=== PATIENT | male | born 1965 | race Caucasian/White ===

== ENCOUNTER 2020-06-18 14:48 | Inpatient (IN) | payer MEDICARE, MEDICAID, OTHER ==
[2020-06-18 15:43] LABS: Hemoglobin 9.5 g/dL (14.0-18.0); Mean Corpuscular HGB CONC 31.9 g/dL (32.0-36.0); Mean Corpuscular Hemoglobin 31.2 pg (27.0-31.0); Mean Corpuscular Volume 97.8 fL (78.0-98.0); Mean Platelet Volume 11.2 fL (7.4-10.4); Platelet Count 55 thou/uL (130-400); RBC Distribution Width 14.3 % (11.5-14.5); Red Blood Cell (RBC) Count 3.02 mill/uL (4.70-6.10); White Blood Cell (WBC) Count 5.5 thou/uL (4.8-10.8)
[2020-06-18 16:04] LABS: Band 49 % (5-11); Eosinophils 1 % (0-10); Lymphocytes 1 % (21-51); MDiff Complete? YES; Metamyelocyte 3 % (0-0); Monocytes 3 % (0-10); Neutrophil 43 % (42-75); Platelet Morphology Comment Appears Decreased; Polychromasia SLIGHT = 2-3 cells (100X) (0-2/hpf); Reflex for Review?? YES
[2020-06-18 16:13] LABS: ALT (SGPT) 28 U/L (8-55); AST (SGOT) 52 U/L (5-34); Alkaline Phosphatase 162 U/L (40-110); Anion Gap 13 mmol/L (10-20); BUN (Urea Nitrogen) 30 mg/dL (8.4-25.7); Bilirubin, Total 2.7 mg/dL (0.2-1.2); Calc. Creatinine Clearance 0 mL/min (70-130); Calcium 8.3 mg/dL (7.8-10.44); Carbon Dioxide 21 mmol/L (22-29); Chloride 105 mmol/L (98-107); Estimated GFR-MDRD 58; Globulin 3.5 g/dL (2.4-3.5); Glucose 144 mg/dL (70-105); Protein, Total 5.5 g/dL (6.0-8.3); Sodium 135 mmol/L (136-145)
[2020-06-18] MEDS ORDERED: Morphine 4 MG/ML VIAL ONE (16:13)
[2020-06-18] MEDS ORDERED: Ondansetron PF 4 MG/2 ML Vial ONE (16:14)
[2020-06-18] MEDS ORDERED: Piperacillin/Tazobactam 4.5 GM VIAL ONE (16:14)
[2020-06-18] MEDS ORDERED: Vancomycin 1 GM/200 ML BAG ONE (16:14)
--- NOTE | 2020-06-18 16:35 | RAD ---
Exam: Chest one view HISTORY:Hip replacement years ago. Comparison: 04/11/2017 FINDINGS: Cardiac silhouette: Normal Aorta: Unremarkable Pulmonary vessels: Normal Costophrenic angles: Clear LUNGS: No masses or consolidation. Pneumothorax: None Osseous abnormalities: None IMPRESSION: No acute cardiopulmonary process.
--- NOTE | 2020-06-18 16:40 | RAD ---
Exam:2 views right hip HISTORY: Previous hip replacement removal. Pain. COMPARISON: 03/08/2017 FINDINGS: Extensive soft tissue swelling and subcutaneous emphysema. Possibility of cellulitis is díaz sed. There are destructive changes involving the acetabulum and residual right hip. There is dislocation with foreshortening. The possibility of underlying osteomyelitis cannot be excluded. Sept ic joint is also a consideration. IMPRESSION: Presumed infection in the right hip.
[2020-06-18 18:45] LABS: Lactic Acid 3.2 mmol/L (0.5-2.2)
[2020-06-18] MEDS ORDERED: Acetaminophen 325 MG TAB PO PRN (19:02)
[2020-06-18] MEDS ORDERED: Zolpidem Tartrate 5 MG TAB PO PRN (19:02)
[2020-06-18] MEDS ORDERED: Senokot S 8.6-50 MG TAB PO PRN (19:02)
[2020-06-18] MEDS ORDERED: Ondansetron ODT 4 MG TAB PO PRN (19:02)
[2020-06-18] MEDS ORDERED: Diabetic Tussin 200 MG/10 ML UDCUP PO PRN (19:02)
[2020-06-18] MEDS ORDERED: Loperamide HCl 2 MG CAP PO PRN (19:02)
[2020-06-18] MEDS ORDERED: Sodium Chloride 0.65% Nasal 44 ML BOT EA NARE PRN (19:02)
[2020-06-18] MEDS ORDERED: Calcium Carbonate 500 MG ChewTAB PO PRN (19:02)
[2020-06-18] MEDS ORDERED: Bisacodyl 10 MG SUPP PR PRN (19:02)
[2020-06-18] MEDS ORDERED: Cepastat Lozenges 1 LOZ PO PRN (19:02)
[2020-06-18] MEDS ORDERED: Loratadine 10 MG TAB PO PRN (19:02)
[2020-06-18] MEDS ORDERED: Ondansetron PF 4 MG/2 ML Vial IVP PRN (19:02)
--- NOTE | 2020-06-18 19:13 | HP ---
PRIMARY CARE PHYSICIAN: dr. Jero Stroud. REASON FOR ADMISSION: Sepsis, septic arthritis. HISTORY OF PRESENT ILLNESS: A 55-year-old male who came to emergency room with increasing right hip pain and swelling. 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 He was also on chronic suppressive therapy with antibiotic therapy. Per patient, he was having increasing amount of pain in his right hip for about a week and he called Orthopedic physician's office. Today, his pain got worse and he was feeling weak and that is why he decided to come to emergency room. In the emergency room, patient was hypotensive and tachycardic. He was given IV fluids. The patient has underlying history of cirrhosis of liver due to alcohol as well as history of paroxysmal atrial fibrillation. PAST MEDICAL HISTORY: History of septic arthritis of right hip due to MRSA, alcohol-induced cirrhosis of liver with portal hypertension, chronic thrombocytopenia, gastroesophageal reflux disease, paroxysmal atrial fibrillation. PAST SURGICAL HISTORY: EGD; history of several surgeries on his right hip, including history of right total hip arthroplasty and subsequent removal of hardware. CURRENT HOME MEDICATIONS: The patient does not have any medication with him at this point, but based on most recent discharge from the hospital, the patient is on following medications; 1. Aldactone 100 mg daily. 2. Colace 100 mg twice daily. 3. Corgard 40 mg daily. 4. Ferrous sulfate 325 mg daily. 5. Folic acid 1 mg daily. 6. Lactulose 20 g daily p.r.n. 7. Lasix 40 mg daily. 8. MiraLAX 17 g p.o. bedtime. 9. Protonix 40 mg daily. 10. Thiamine 100 mg daily. 11. Tramadol p.r.n. 12. Vitamin B12 at 1000 mcg p.o. daily. REVIEW OF SYSTEMS: All review of systems reviewed and negative except as mentioned in HPI. PAST PSYCHIATRIC HISTORY: Bipolar disorder and depression. SOCIAL HISTORY: The patient lives at home. Currently, no history of tobacco, alcohol, or illicit drug abuse. He has remote history of alcoholism. EMERGENCY ROOM COURSE: The patient has received IV fluids, vancomycin, Zosyn, Zofran, and morphine. Family history: No strong family history of premature coronary artery disease stroke or cancer PHYSICAL EXAMINATION: VITAL SIGNS: Blood pressure 98/54, pulse 138, respiratory rate 24, temperature 98, saturation 100% on room air. Weight 92.2 kg. GENERAL: The patient is currently alert, awake, chronically ill, no obvious acute distress. HEENT: Head; normocephalic, atraumatic. NECK: Supple. No JVD. LUNGS: Clear to auscultation without any rhonchi or rales. CARDIAC: S1 and S2 appears regular, but tachycardia. No murmur elicited. No gallop. No rub. ABDOMEN: Obesity noted, ascites noted. EXTREMITIES: Bilateral lower extremity pitting edema noted, right hip erythema and draining pus. NEUROLOGIC: Nonfocal examination. No asterixis. HEMATOLOGICAL SYSTEM: No lymphadenopathy. SIGNIFICANT LABORATORY DATA: WBC 5.5, hemoglobin 9.5, MCV 97.8, platelets 55 with bandemia. BMP; sodium 135, potassium 4.0, chloride 105, carbon dioxide 21, anion gap 13, BUN 30, creatinine 1.29, glucose 144, calcium 8.3, lactic acid 3.6. LFTs; bilirubin 2.7, AST 52, ALT 28, alkaline phosphatase 162, albumin 2.0. Culture from the hip sent. EKG is showing tachycardia. Hip x-ray showing infection in the right hip. ASSESSMENT/PLAN: 1. Sepsis with acute organ dysfunction, likely due to methicillin-resistant Staphylococcus aureus. 2. Sepsis-associated hypotension. 3. Tachycardia, likely due to sepsis. 4. Bandemia due to sepsis. 5. Lactic acidosis due to sepsis. 6. Chronic thrombocytopenia. 7. Macrocytic anemia. 8. Hyperbilirubinemia and coagulopathy due to cirrhosis of liver. 9. Abnormal liver function tests due to cirrhosis of liver. 10. Cirrhosis of liver with portal hypertension. 11. Paroxysmal atrial fibrillation. PLAN: The patient will be admitted to telemetry floor. We will closely monitor for any deterioration. In that case, patient will need upgradation to IMCU or ICU transfer. Dr. Swan will be consulted; orthopedic doctor, Dr. Kirkpatrick, already consulted and I spoke with him and the patient is planned for surgery tomorrow. We will check PT/INR tomorrow. If coagulopathy, then we will correct before surgery. We will repeat labs tomorrow. Follow up on culture results, expecting MRSA bacteremia. Patient's prognosis is extremely poor. He is also very high risk for surgery. We will get opinion from Cardiology as well. We have started vancomycin and Zosyn for now. Pharmacy to adjust vancomycin dose. The patient will need wound care. The patient will need long-term antibiotic therapy. Because of low platelet count, we will avoid any heparin products. We will continue with folic acid, vitamin B12 therapy. We will hold on any blood pressure medication because of low blood pressure. CODE STATUS: The patient wants to be a full code. The patient does not have any surrogate decisionmaker. GI prophylaxis, Protonix 40 mg p.o. daily. DISPOSITION PLAN: Based on clinical course. PROGNOSIS: Extremely poor. Job ID: [id number] MTDD
[2020-06-18] MEDS ORDERED: Norepinephrine 8 MG/0.9% NS 250 ML IVPB PRN (20:56)
[2020-06-18 21:09] LABS: INR-International Normal Ratio 2.4; Prothrombin Time 26.6 sec (12.0-14.7)
--- NOTE | 2020-06-18 21:50 | RAD ---
Chest AP view INDICATION: Central line placement COMPARISON: Prior exam dated June 18, 2020 at 4:13 PM. FINDINGS: Lungs: The lungs are clear Cardiac silhouette: The cardiomediastinal silhouette appears within normal limits. Pulmonary vasculature: Normal Pleural spaces: No pleural effusion or pneumothorax is demonstrated. Upper abdomen: No abnormality seen. Osseous structures: No acute osseous abnormality. Additional findings: New right IJ central venous catheter with its tip projecting in the region of the cavoatrial junction . IMPRESSION: New right IJ central venous catheter. No acute cardiopulmonary abnormality.
[2020-06-18] MEDS ORDERED: Vancomycin 1.5 GRAM/300 ML BAG 1.5 GM in Premix Bag 1 BAG IVPB SCH (22:00)
[2020-06-19] MEDS ORDERED: Piperacillin/Tazobactam 3.375 GM VIAL ONE ×3 (00:02→07:49)
[2020-06-19] MEDS: Piperacillin/Tazobactam 3.375 GM in Sodium Chloride 0.9% 100 ML IVPB SCH ×5 (00:14→21:17)
[2020-06-19] MEDS: Sodium Chloride 0.9% 1,000 ML IV SCH ×3 (00:14→16:54)
[2020-06-19 04:04] LABS: INR-International Normal Ratio 2.3; Prothrombin Time 26.2 sec (12.0-14.7)
[2020-06-19 04:19] LABS: ALT (SGPT) 25 U/L (8-55); AST (SGOT) 59 U/L (5-34); Albumin 1.7 g/dL (3.5-5.0); Alkaline Phosphatase 132 U/L (40-110); Anion Gap 14 mmol/L (10-20); BUN (Urea Nitrogen) 32 mg/dL (8.4-25.7); Bilirubin, Total 2.4 mg/dL (0.2-1.2); Calc. Creatinine Clearance 0 mL/min (70-130); Calcium 7.7 mg/dL (7.8-10.44); Carbon Dioxide 18 mmol/L (22-29); Chloride 111 mmol/L (98-107); Estimated GFR-MDRD 53; Globulin 3.1 g/dL (2.4-3.5); Glucose 94 mg/dL (70-105); Potassium 4.9 mmol/L (3.5-5.1); Protein, Total 4.8 g/dL (6.0-8.3); Sodium 138 mmol/L (136-145)
[2020-06-19 04:24] LABS: Band 41 % (5-11); Hemoglobin 8.6 g/dL (14.0-18.0); Lymphocytes 7 % (21-51); MDiff Complete? YES; Mean Corpuscular HGB CONC 32.1 g/dL (32.0-36.0); Mean Corpuscular Hemoglobin 31.3 pg (27.0-31.0); Mean Corpuscular Volume 97.5 fL (78.0-98.0); Mean Platelet Volume 11.9 fL (7.4-10.4); Metamyelocyte 2 % (0-0); Monocytes 3 % (0-10); Myelocyte 1 % (0-0); Neutrophil 46 % (42-75); Nucleated RBC 1 % (0); Platelet Count 34 thou/uL (130-400); Platelet Morphology Comment Appears Decreased; RBC Distribution Width 14.3 % (11.5-14.5); Red Blood Cell (RBC) Count 2.76 mill/uL (4.70-6.10); White Blood Cell (WBC) Count 5.3 thou/uL (4.8-10.8)
[2020-06-19] MEDS: Ferrous Sulfate 325 MG TAB PO SCH (07:29)
[2020-06-19 07:56] LABS: Bilirubin Negative (Negative); Blood, Urine 3+ (Negative); Clarity Turbid (Clear); Glucose, Urine (Dipstick) Normal (Negative); Ketone, Urine Negative (Negative); Leukocyte 500 Leu/uL (Negative); Nitrite Negative (Negative); Protein, Urine (Dipstick) 70 mg/dL (Neg-Trace); RBC/HPF 21-50 HPF (0-3); Specific Gravity, Urine 1.022 (1.002-1.036); Squamous Epithelial 0-3 HPF (0-3); Urobilinogen Normal mg/dL (Less than 2); WBC/HPF Greater than 50 HPF (0-3); pH, Urine 5.5 (5.0-9.0)
[2020-06-19 07:58] LABS: Bacteria/HPF 1+ HPF (None Seen)
[2020-06-19 08:02] LABS: Unclassified Crystals None Seen HPF (None Seen)
--- NOTE | 2020-06-19 09:18 | CON ---
DATE OF CONSULTATION: 06/19/2020 This is Kellen Jim PA-C dictating a report for Sharad Kirkpatrick MD. [facility] CONSULTING PHYSICIAN: Sharad Kirkpatrick MD REASON FOR CONSULTATION: Right hip infection. HISTORY OF PRESENT ILLNESS: This is a 55-year-old male who is known to our service. He presented to the emergency department with complaints of increasing right hip pain and swelling. He does have a history of MRSA septic hip arthritis since 2012. At that point he underwent conversion of his previous hip to a total hip arthroplasty. He then returned in 2017 and underwent explant of his prosthesis to a girdle stone. At this point, he was diagnosed with MRSA bacteremia. Today in the ER, patient states that he has had ongoing hip pain for a couple of months, but really worsening within the last week. He states that he started to feel weak and presented to the emergency department. He was noted to be hypotensive and tachycardic. His medical history includes long-standing liver cirrhosis due to alcohol as well as esophageal varices and paroxysmal atrial fibrillation. Upon presentation in the ER, the patient was noted to have a sinus at the right hip. This was swabbed and at that point purulent drainage was spontaneously expressed. PAST MEDICAL HISTORY: Significant for septic arthritis of the right hip from MRSA, alcohol induced cirrhosis of the liver with portal hypertension including esophageal varices, paroxysmal atrial fibrillation, bipolar disorder, depression, gastroesophageal reflux disease, chronic thrombocytopenia. PAST SURGICAL HISTORY: Cholecystectomy, multiple right hip surgeries including explant of hardware. SOCIAL HISTORY: The patient lives at home alone. He states he lives on a 1st floor apartment. He ambulates with some assistance but gives a very vague history on whether or not he requires some sort of assistive device to get around. He currently has no history of tobacco, alcohol, or illicit drug use. He has a remote history of alcoholism. REVIEW OF SYSTEMS: Ten-point review of systems conducted and otherwise negative except for stated above. PHYSICAL EXAMINATION: VITAL SIGNS: Shows vital signs are stable. The patient is tachycardic in the 130s. GENERAL: The patient is awake and alert. He does appear ill. No signs of obvious distress at this point. He does converse and is pleasant. He is difficult to understand. HEENT: Head is normocephalic and atraumatic. NECK: Supple. Trachea midline. LUNGS: Breathing is nonlabored. EXTREMITIES: Bilateral lower extremities were noted to have pitting edema. There is significant right hip erythema and soft tissue swelling. This is actively draining purulent material. He is able to move his foot and toes distally. Distal neurovascular status is intact. LABORATORY DATA: Which was reviewed at today's visit includes a CBC showing a hemoglobin of 8.6, hematocrit of 26.9, white blood cells normal at 5.3, and his platelet count is decreased at 34. Coagulation panel shows PT of 26.2 and INR of 2.3. Chemistry shows an elevated BUN and creatinine at 32 and 1.39 respectively. C-reactive protein is elevated at 22.6. Urine is significant for 500 leukocyte esterase and greater than 50 white blood cells with 1+ bacteria. RADIOGRAPHIC IMAGING: Reviewed including a hip x-ray shows presumed infection in the right hip with extensive soft tissue swelling and subcutaneous emphysema. There is evidence of a Girdlestone procedure with the absence of the femoral head. There is also destructive changes in the acetabulum as well as foreshortening. Osteomyelitis cannot be excluded. ASSESSMENT: Septic right hip in a 55-year-old male with significant history for liver cirrhosis and portal hypertension with coagulopathy. PLAN: At this time the patient is n.p.o. We will prepare for surgery including washout of this hip. We will need medicine to get him tuned up in order for his coagulation panel to be improved before we do so. Our procedure will include irrigation of the right hip. PIC the patient will likely need Infectious Disease consult and PICC line antibiotics in the future. We will leave him n.p.o. at this point and add him to the surgery schedule later today in preparation for this procedure. Risks, benefits and alternative discussed at length with the patient today. He verbalizes understanding of this and is amenable to our plan of care. Job ID: [id number]
[2020-06-19 13:18] LABS: SARS-CoV-2 MS2 Positive; SARS-CoV-2 N Gene Negative; SARS-CoV-2 S Gene Negative; SARS-CoV-2 by NAA Not Detected (NotDetected); SARS-CoV-2 orf1ab Negative
[2020-06-19] MEDS: Cyanocobalamin (Vitamin B-12) 1,000 MCG TAB PO SCH (13:29)
[2020-06-19] MEDS: Folic Acid 1 MG TAB PO SCH (13:29)
[2020-06-19] MEDS: Thiamine 100 MG TAB PO SCH (13:30)
[2020-06-19] MEDS ORDERED: Vancomycin 1 GM/200 ML BAG ONE (13:32)
[2020-06-19] MEDS: Vancomycin 1 GM in Premix Bag 1 BAG IVPB SCH (13:39)
[2020-06-19] MEDS ORDERED: Morphine 2 MG/ML VIAL ONE (13:44)
[2020-06-19] MEDS: Morphine 2 MG/ML VIAL SLOW IVP PRN (14:00)
[2020-06-19 14:09] LABS: INR-International Normal Ratio 2.2; Prothrombin Time 24.9 sec (12.0-14.7)
--- NOTE | 2020-06-19 16:38 | PDOC.HOSPP ---
- Subjective Encounter Date: 06/19/20 Encounter Time: 14:00 Subjective: Patient seen for follow-up regarding sepsis. He denies chest pain, shortness of breath, fever or chills. - Objective Vital Signs & Weight: Vital Signs (12 hours) Temp Pulse Ox 06/19/20 16:13 98 06/19/20 16:10 98.3 F Weight Weight 210 lb 1.608 oz Result Diagrams: 06/19/20 03:45 06/19/20 03:45 Additional Labs: I reviewed patient's labs and MAR EKG Reviewed by me: Yes (Telemetry: NSR) Hospitalist ROS - Review of Systems ROS unobtainable: due to mental status Cardiovascular: denies: chest pain, palpitations, orthopnea, paroxysmal noc. dyspnea, edema, light headedness Gastrointestinal: denies: nausea, vomiting, abdominal pain, diarrhea, constipation, melena, hematochezia Musculoskeletal: reports: other (Right hip pain) - Medication Medications: Active Medications Generic Name Dose Route Start Last Admin Trade Name Freq PRN Reason Stop Dose Admin Cyanocobalamin 1,000 mcg 06/19/20 09:00 06/19/20 13:29 Cyanocobalamin (Vitamin B-12) 1,000 Mcg Tab PO Not Given DAILY DIANA Ferrous Sulfate 325 mg 06/19/20 08:00 06/19/20 07:29 Ferrous Sulfate 325 Mg Tab PO Not Given QAM-WM DIANA Folic Acid 1 mg 06/19/20 09:00 06/19/20 13:29 Folic Acid 1 Mg Tab PO Not Given DAILY DIANA Sodium Chloride 1,000 mls @ 125 mls/hr 06/18/20 19:02 06/19/20 03:38 Normal Saline 0.9% IV 1,000 mls .Q8H DIANA Administration Piperacillin Sod/Tazobactam 100 mls @ 200 mls/hr 06/18/20 20:00 06/19/20 08:01 Sod 3.375 gm/ Sodium Chloride IVPB 100 mls 0200,0800,1400,2000 DIANA Administration Vancomycin HCl 1 gm/ Device 200 mls @ 200 mls/hr 06/19/20 12:00 06/19/20 13:39 IVPB 200 mls 0000,1200 DIANA Administration Pantoprazole Sodium 40 mg 06/19/20 09:00 06/19/20 13:30 Pantoprazole 40 Mg Tab PO Not Given DAILY DIANA Thiamine HCl 100 mg 06/19/20 09:00 06/19/20 13:30 Thiamine 100 Mg Tab PO Not Given DAILY DIANA - Exam General Appearance: awake alert Eye: scleral icterus ENT: moist mucosa Neck: supple Heart: RRR Respiratory: CTAB Gastrointestinal: soft, non-tender Skin: no rashes Psychiatric: normal affect, oriented to person Hosp A/P (1) Sepsis Code(s): A41.9 - SEPSIS, UNSPECIFIED ORGANISM Status: Acute (2) Septic arthritis Status: Acute (3) Coagulopathy Status: Acute (4) Bacteremia Code(s): R78.81 - BACTEREMIA Status: Acute (5) Alcoholic cirrhosis of liver Code(s): K70.30 - ALCOHOLIC CIRRHOSIS OF LIVER WITHOUT ASCITES Status: Chronic Qualifiers: Ascites presence: with ascites Qualified Code(s): K70.31 - Alcoholic cirrhosis of liver with ascites (6) GERD (gastroesophageal reflux disease) Code(s): K21.9 - GASTRO-ESOPHAGEAL REFLUX DISEASE WITHOUT ESOPHAGITIS Status: Chronic Qualifiers: Esophagitis presence: without esophagitis Qualified Code(s): K21.9 - Gastro-esophageal reflux disease without esophagitis (7) Thrombocytopenia Code(s): D69.6 - THROMBOCYTOPENIA, UNSPECIFIED Status: Chronic - Plan Plan is surgery of the right hip for the septic arthritis. Administer FFP, recheck INR. Continue IV vancomycin and Zosyn. Continue thiamine and folic acid. 2 out of 2 blood cultures are positive for Staph aureus. Hyponatremia mild, likely asymptomatic.
--- NOTE | 2020-06-19 17:26 | PRG ---
DATE OF SERVICE: 06/19/2020 SUBJECTIVE: Cristobal Batista is a 55-year-old male, who was admitted with septic hip. He has a history of MRSA in the hip going back as far as 2012. Orthopedic Surgery has diagnosed his orthopedic history. He presented today with hypotension, tachycardia, and hip pain. PAST MEDICAL HISTORY: Remarkable for; 1. Liver disease with portal hypertension and esophageal varies. 2. History of atrial fibrillation. 3. History of bipolar illness. 4. History of reflux disease. 5. History of hypersplenism and thrombocytopenia. 6. History of cholecystectomy. 7. History of multiple hip surgeries. SOCIAL HISTORY: Lives alone. He is not a smoker or drinker currently. He was a heavy drinker in the past. FAMILY HISTORY: Negative for lung disease in early age. REVIEW OF SYSTEMS: Not reliable as he is encephalopathic. PHYSICAL EXAMINATION: VITAL SIGNS: Blood pressure is in the 80s systolic, heart rate is 100. When I saw him, he is afebrile. Oximetry is 98% on room air. GENERAL: He looks uncomfortable, but he is not tachypneic. HEAD AND NECK: Unremarkable other than having a large neck. He has no cervical lymphadenopathy. LUNGS: Clear. HEART: Regular rhythm. ABDOMEN: Soft and nontender. Hip is painful with any manipulation of his hip. LABORATORY DATA: White count 5.3, hemoglobin 8.6, platelets 34. He has 41% bands on his peripheral smear. Bicarb of 14, BUN of 32, creatinine 1.39. INR is 2.2. Urinalysis was remarkable for greater than 50 white cells, 250 red cells. COVID screen is negative. IMPRESSION: 1. Septic hip. 2. Acute on chronic kidney disease. 3. Metabolic acidosis. I will check a blood gas and start him on some IV maintenance fluids. PLAN: Plan to discuss with Orthopedic surgery. Platelets and plasma could be given prior to surgery and would not eliminate, but minimize bleeding complications. This is a 70 min consult with greater than 50% of the time spent on the unit with coordination of care. Job ID: [id number] [facility]
[2020-06-19 17:32] LABS: Actual Bicarbonate (HCO3a) 16.9 mEq/L (22-28); Base Excess (BEa) -7.2 mEq/L (-2.0 to +3.0); Calcium, Ionized (arterial) 1.13 mmol/L (1.12-1.30); Carboxyhemoglobin (COHb) 0.3 gm% (0.0-3.0); Hemoglobin (Hb) 8.8 g/dL (14.0-18.0); O2 Tension (PaO2), arterial 73.7 mmHg (80.0-100.0); Potassium - ABG Lab 4.62 mmol/L (3.70-5.30); pH, Arterial 7.38 (7.35-7.45)
[2020-06-19 17:34] LABS: Puncture Site LRA
[2020-06-19] MEDS: Sodium Chloride 0.45% 1,000 ML IV SCH (19:08)
[2020-06-19] MEDS: Albumin 25% 25 GM/100 ML BOT IVPB SCH (19:23)
[2020-06-19] MEDS: Sodium Bicarbonate 100 MEQ in Dextrose 5% in Water 1,000 ML IV SCH (20:23)
[2020-06-20] MEDS: Vancomycin 1 GM in Premix Bag 1 BAG IVPB SCH ×3 (01:04→23:26)
[2020-06-20] MEDS: Albumin 25% 25 GM/100 ML BOT IVPB SCH ×4 (01:05→16:47)
[2020-06-20] MEDS: Sodium Chloride 0.45% 1,000 ML IV SCH ×2 (01:05→08:14)
[2020-06-20] MEDS: Piperacillin/Tazobactam 3.375 GM in Sodium Chloride 0.9% 100 ML IVPB SCH ×4 (04:01→21:17)
[2020-06-20 05:22] LABS: Anion Gap 11 mmol/L (10-20); BUN (Urea Nitrogen) 45 mg/dL (8.4-25.7); Calc. Creatinine Clearance 72 mL/min (70-130); Calcium 7.4 mg/dL (7.8-10.44); Carbon Dioxide 21 mmol/L (22-29); Chloride 110 mmol/L (98-107); Estimated GFR-MDRD 46; Glucose 150 mg/dL (70-105); Potassium 4.3 mmol/L (3.5-5.1); Sodium 138 mmol/L (136-145)
[2020-06-20 06:12] LABS: Band 33 % (5-11); Lymphocytes 9 % (21-51); MDiff Complete? YES; Mean Corpuscular HGB CONC 32.2 g/dL (32.0-36.0); Mean Corpuscular Hemoglobin 31.4 pg (27.0-31.0); Mean Corpuscular Volume 97.5 fL (78.0-98.0); Mean Platelet Volume 12.9 fL (7.4-10.4); Monocytes 5 % (0-10); Myelocyte 1 % (0-0); Neutrophil 52 % (42-75); Platelet Count 32 thou/uL (130-400); Platelet Morphology Comment Appears Decreased; RBC Distribution Width 14.4 % (11.5-14.5); Red Blood Cell (RBC) Count 2.88 mill/uL (4.70-6.10); White Blood Cell (WBC) Count 3.1 thou/uL (4.8-10.8)
[2020-06-20 06:43] LABS: INR-International Normal Ratio 1.8
[2020-06-20 06:44] LABS: PTT 48.4 sec (22.9-36.1)
[2020-06-20] MEDS: Morphine 2 MG/ML VIAL SLOW IVP PRN ×3 (06:54→23:25)
--- NOTE | 2020-06-20 08:17 | CON ---
DATE OF CONSULTATION: 06/19/2020 REASON FOR CONSULTATION: Preoperative evaluation. HISTORY OF PRESENT ILLNESS: Mr. Batista is a pleasant 55-year-old white gentleman, who I have seen and evaluated in the past, who comes to the hospital for not feeling well. He was found to be hypotensive, confused, and diagnosed with MRSA bacteremia related to an infected hip joint. He is scheduled to have washout of the hip and Cardiology is being consulted for preoperative evaluation. He has a cardiac history as he has had episodes of SVT in the past. He actually underwent ablation for this and has not had any recurrence as far as we can tell. He has not followed up with us since 2017 when he was seen in the hospital. He was also found to have episodes of atrial fibrillation at that time. At that time, he was also infected with MRSA bacteremia from septic hip as well. He underwent washout at that time without issues and for stroke prophylaxis, he was deemed to be only a candidate for aspirin as he has history of cirrhosis with varicosities in his esophagus and he would be a very high risk for bleeding, so he has been recommended to be on aspirin. It is unclear whether he has been on it or not. On my evaluation, Mr. Batista is confused and borderline hypotensive. EKG was reviewed as well. PAST MEDICAL HISTORY: 1. Liver cirrhosis. 2. History of SVT, status post ablation. 3. Esophageal varices. 4. Paroxysmal atrial fibrillation. 5. History of septic joint in the past with MRSA. PAST SURGICAL HISTORY: 1. Cholecystectomy. 2. Hip revision several times. MEDICATIONS: Outpatient medications are not confirmed, but he should be on; 1. Thiamine. 2. Pantoprazole. 3. Lactulose. 4. Folic acid. 5. Ferrous sulfate. 6. Vitamin B12. 7. Tramadol. 8. Vancomycin. 9. Spironolactone 100 mg a day. 10. Polyethylene glycol. 11. Oxycodone p.r.n. 12. Nadolol 40 mg a day. 13. Furosemide 40 mg a day. 14. Docusate 100 mg b.i.d. ALLERGIES: NO KNOWN DRUG ALLERGIES PER CHART REVIEW. SOCIAL HISTORY: Unobtainable as the patient is confused. FAMILY HISTORY: Noncontributory to current situation. REVIEW OF SYSTEMS: Unobtainable as the patient is confused. PHYSICAL EXAMINATION: VITAL SIGNS: Temperature 98.3, pulse 98, respiratory rate 16, saturating 96% on 2 L nasal cannula, blood pressure on my evaluation 86/48. GENERAL: Awake, alert, oriented to person only, in no distress. HEENT: Normocephalic, atraumatic. NECK: Supple. LUNGS: Clear anteriorly. CARDIOVASCULAR: S1 and S2. Tachycardic in the low 100s. Grade 2/6 systolic murmur at right upper sternal border. ABDOMEN: Soft. Positive bowel sounds. Difficult to assess for ascitic wave. EXTREMITIES: 2+ edema. SKIN: Warm and dry. LABORATORY DATA: Laboratory work was reviewed. White count 5, hemoglobin 9.5, actually down to 8.6 today, platelet count of 55, down to 34 today. Coags; INR have been 2.4, 2.3, 2.2. Chemistry was reviewed. Creatinine has gone up slightly to 1.39 from 1.29. Otherwise, total bilirubin of 2.4, AST high at 59, ALT 25, alkaline phosphatase 132. CRP was 22. Albumin of 1.7. UA was reviewed. COVID-19 PCR was not detected. Chest x-ray done yesterday showed new right IJ. No acute cardiopulmonary abnormalities. ASSESSMENT: 1. Preoperative cardiovascular examination. 2. Liver cirrhosis. 3. Septic joint. 4. MRSA bacteremia. 5. septic shock. PLAN: 1. At this point, he needs his septic joint opened and cleaned up. This is not an elective situation where we can elect to delay any procedures for further risk stratification. Hence, he should be able to proceed with said procedures. His risk from the cardiac standpoint is moderate to high just because we have not had an evaluation of his coronary anatomy. However, this should not preclude any further surgical interventions that may save his life. At this point, his source of sepsis is on his joint and this needs to be cleaned out and he should be able to proceed. His risk is not prohibitive. His highest risk in my opinion would be related to his cirrhosis and his elevated INR and low platelets. Bleeding would be the biggest concern. 2. We will get an echocardiogram, but this should not delay any surgical intervention as this is a life-saving situation. Thank you for letting us to participate in the care of your patient. We will follow. Job ID: [id number]
--- NOTE | 2020-06-20 08:25 | RAD ---
CHEST 1 VIEW: HISTORY: Sepsis. COMPARISON: Radiograph of 06/18/2020. FINDINGS: Similar appearance right IJ central venous catheter. No pneumothorax. No effusion. Mild lung hypoi nflation. No acute osseous abnormality. IMPRESSION: No acute intrathoracic abnormality. POS: HOME
[2020-06-20] MEDS ORDERED: FLU VACC QS2020-21(6MOS UP)/PF 60 MCG/0.5 ML SYRINGE IM ONE (09:00)
[2020-06-20] MEDS ORDERED: Neomycin-Polymyxin 1 ML AMP ONE (09:10)
[2020-06-20] MEDS ORDERED: Fentanyl 250 MCG/5 ML VIAL ONE (09:12)
[2020-06-20] MEDS ORDERED: Piperacillin/Tazobactam 3.375 GM VIAL ONE (09:17)
[2020-06-20] MEDS ORDERED: Phenylephrine 10 MG/ML VIAL ONE (09:23)
[2020-06-20] MEDS ORDERED: Sodium Chloride 0.9% 10 ML ONE (09:53)
[2020-06-20] MEDS ORDERED: SUGAMMADEX SODIUM 200 MG/2 ML VIAL ONE (10:45)
[2020-06-20] MEDS ORDERED: PROPOFOL 200 MG/20 ML VIAL ONE (10:47)
[2020-06-20] MEDS ORDERED: Ondansetron PF 4 MG/2 ML Vial ONE (10:47)
[2020-06-20] MEDS ORDERED: Glycopyrrolate 0.2 MG/ML 5 ML SYRINGE ONE (10:47)
[2020-06-20] MEDS ORDERED: Rocuronium Bromide 10 MG/ML (10ML VIAL) ONE (10:47)
[2020-06-20] MEDS ORDERED: Lidocaine 1% PF 5 ML VIAL ONE (10:47)
[2020-06-20] MEDS ORDERED: Fentanyl 100 MCG/2 ML VIAL ONE (10:59)
[2020-06-20] MEDS ORDERED: Ondansetron HCl/PF 4 MG/2 ML Vial IVP PRN (11:04)
[2020-06-20] MEDS ORDERED: Promethazine HCl 25 MG/ML VIAL IM PRN (11:04)
[2020-06-20] MEDS ORDERED: Promethazine HCl 25 MG/ML VIAL SLOW IVP PRN (11:04)
--- NOTE | 2020-06-20 11:05 | OP ---
DATE OF PROCEDURE: 06/20/2020 OPERATION: Right hip irrigation and debridement. PREOPERATIVE DIAGNOSIS: Right hip infection. POSTOPERATIVE DIAGNOSIS: Right hip infection. COMPLICATIONS: None. ESTIMATED BLOOD LOSS: 100 mL. MAKING LINE WORKER: Kellen Jim. IMPLANTS: None. INDICATIONS: Mr. Batista is a 55-year-old male, who has a long history of right hip infection. He has had an intra-articular infection from a previous hip arthroplasty. His hip arthroplasty was removed. He has now had a recurrent infection in the hip. He has presented with a draining hip wound. He has been indicated for irrigation and debridement of the hip to hopefully eradicate infection and prevent sepsis. Risks have been reviewed. DESCRIPTION OF PROCEDURE: Mr. Batista was identified in the preoperative holding area. His correct extremity was marked. He was carried to the operating room. He was positioned supine. General anesthesia was induced. A multidisciplinary time-out was performed. The right lower extremity was prepped and draped in sterile fashion after he was converted to the lateral decubitus position. At this point, we began the procedure by incising the patient's lateral wound. We encountered gross purulence. Cultures were taken. We worked deeply down to the fascia level, which was opened. We again encountered purulent material deep to the fascia. This tracked anteriorly over the hip as well as down his thigh in the subcutaneous tissues. We thoroughly irrigated with approximately 8 L of lavage. We performed an excisional debridement with a knife, curette, rongeur, etc down to the bony level. Again, we performed the debridement and again we lavaged. Once we had a clean field, we placed a deep Hemovac drain. We then closed the subcutaneous layers with PDS suture followed by nylon for the skin. A sterile dressing was applied. The patient was taken to the recovery room in good condition. The computer lab assistant was involved in positioning the patient, prepping the limb, fracture reduction, surgical approach and wound closure. Job ID: [id number] [facility]
--- NOTE | 2020-06-20 11:42 | PRG ---
DATE OF SERVICE: 06/20/2020 SUBJECTIVE: Mr. Batista is tentatively going to the OR today. OBJECTIVE: VITAL SIGNS: Afebrile, blood pressure 107/65, respiratory rate is in the 20s. LUNGS: Clear. HEART: Regular rhythm. ABDOMEN: Soft. LABORATORY DATA: INR is down to 1.8. Two more units plasma was ordered. Platelet count was 52,000 today. Electrolytes were essentially unchanged. Creatinine was up to 1.57. IMPRESSION: 1. Clinical sepsis secondary to infected hip, most likely the methicillin-resistant Staphylococcus aureus. 2. Elevated liver enzymes with cirrhosis. 3. Hypoalbuminemia secondary to liver synthetic dysfunction. 4. Mild hyperchloremic acidosis. 5. Chronic kidney disease. He is certainly at risk for hepatorenal syndrome. He probably also has a mild hepatic encephalopathy. He is going to the OR and then will probably come back, even the intermediate care unit or the critical care unit. Job ID: [id number]
[2020-06-20] MEDS: Sodium Bicarbonate 100 MEQ in Dextrose 5% in Water 1,000 ML IV SCH ×4 (11:57→23:30)
[2020-06-20] MEDS: Ferrous Sulfate 325 MG TAB PO SCH (12:07)
[2020-06-20] MEDS: Thiamine 100 MG TAB PO SCH (12:07)
[2020-06-20] MEDS: Folic Acid 1 MG TAB PO SCH (12:07)
[2020-06-20] MEDS: Cyanocobalamin (Vitamin B-12) 1,000 MCG TAB PO SCH (12:07)
[2020-06-20] MEDS: HYDROcodone/Acetaminophen 5/325 mg Tablet PO PRN ×2 (12:08→16:46)
--- NOTE | 2020-06-20 17:54 | PDOC.HOSPP ---
- Subjective Encounter Date: 06/20/20 Encounter Time: 17:53 Subjective: Patient seen for follow-up regarding sepsis. Reports feeling better. - Objective Vital Signs & Weight: Vital Signs (12 hours) Temp 06/20/20 15:46 98.2 F 06/20/20 11:28 97.8 F 06/20/20 07:48 98.6 F Weight Weight 210 lb 1.608 oz Most Recent Monitor Data Heart Rate from ECG 123 NIBP 105/57 NIBP BP-Mean 73 Respiration from ECG 22 SpO2 95 I&O: 06/19/20 06/20/20 06/21/20 06:59 06:59 06:59 Intake Total 1198 240 Output Total 350 250 Balance 848 -10 Result Diagrams: 06/20/20 03:54 06/20/20 03:54 Additional Labs: Labs and MAR reviewed by me EKG Reviewed by me: Yes (Sinus tachycardia on telemetry) Hospitalist ROS - Review of Systems Cardiovascular: denies: chest pain, palpitations, orthopnea, paroxysmal noc. dyspnea, edema, light headedness Gastrointestinal: denies: nausea, vomiting, abdominal pain, diarrhea, constipation, melena, hematochezia - Medication Medications: Active Medications Generic Name Dose Route Start Last Admin Trade Name Freq PRN Reason Stop Dose Admin Hydrocodone Bitart/Acetaminophen 1 tab 06/18/20 19:02 06/20/20 16:46 Hydrocodone/Acetaminophen 5/325 Mg Tablet PO 1 tab Q4H PRN Administration Moderate Pain (4-6) Albumin Human 25 gm 06/19/20 18:00 06/20/20 16:47 Albumin 25% 25 Gm/100 Ml Bot IVPB 06/20/20 18:01 25 gm Q6HR DIANA Administration Cyanocobalamin 1,000 mcg 06/19/20 09:00 06/20/20 12:07 Cyanocobalamin (Vitamin B-12) 1,000 Mcg Tab PO 1,000 mcg DAILY DIANA Administration Ferrous Sulfate 325 mg 06/19/20 08:00 06/20/20 12:07 Ferrous Sulfate 325 Mg Tab PO 325 mg QAM-WM DIANA Administration Folic Acid 1 mg 06/19/20 09:00 06/20/20 12:07 Folic Acid 1 Mg Tab PO 1 mg DAILY DIANA Administration Piperacillin Sod/Tazobactam 100 mls @ 200 mls/hr 06/18/20 20:00 06/20/20 16:54 Sod 3.375 gm/ Sodium Chloride IVPB 100 mls 0200,0800,1400,2000 DIANA Administration Vancomycin HCl 1 gm/ Device 200 mls @ 200 mls/hr 06/19/20 12:00 06/20/20 12:08 IVPB 200 mls 0000,1200 DIANA Administration Sodium Bicarbonate 100 meq/ 1,100 mls @ 150 mls/hr 06/19/20 18:30 06/20/20 16:55 Dextrose/Water IV Not Given .Q7H20M DIANA Morphine Sulfate 2 mg 06/18/20 19:02 06/20/20 12:08 Morphine 2 Mg/Ml Vial SLOW IVP 2 mg Q4H PRN Administration Pain Pantoprazole Sodium 40 mg 06/19/20 09:00 06/20/20 12:07 Pantoprazole 40 Mg Tab PO 40 mg DAILY DIANA Administration Thiamine HCl 100 mg 06/19/20 09:00 06/20/20 12:07 Thiamine 100 Mg Tab PO 100 mg DAILY DIANA Administration - Exam General Appearance: awake alert Eye: scleral icterus ENT: normocephalic atraumatic Neck: supple Heart - other findings: S1, S2, regular and tachycardic Respiratory: CTAB Gastrointestinal: soft, non-tender Extremities: 2+ LE edema Skin: no rashes Psychiatric: normal affect, oriented to person, oriented to place Hosp A/P (1) Sepsis Code(s): A41.9 - SEPSIS, UNSPECIFIED ORGANISM Status: Acute (2) Septic arthritis Status: Acute (3) Coagulopathy Status: Acute (4) Bacteremia Code(s): R78.81 - BACTEREMIA Status: Acute (5) Alcoholic cirrhosis of liver Code(s): K70.30 - ALCOHOLIC CIRRHOSIS OF LIVER WITHOUT ASCITES Status: Chronic Qualifiers: Ascites presence: with ascites Qualified Code(s): K70.31 - Alcoholic cirrhosis of liver with ascites (6) GERD (gastroesophageal reflux disease) Code(s): K21.9 - GASTRO-ESOPHAGEAL REFLUX DISEASE WITHOUT ESOPHAGITIS Status: Chronic Qualifiers: Esophagitis presence: without esophagitis Qualified Code(s): K21.9 - Gastro-esophageal reflux disease without esophagitis (7) Thrombocytopenia Code(s): D69.6 - THROMBOCYTOPENIA, UNSPECIFIED Status: Chronic - Plan Status post right hip irrigation and debridement earlier today. Patient received multiple units of FFP. Patient is on IV vancomycin and Zosyn. Continue thiamine and folic acid. 2 out of 2 blood cultures are positive for Staph aureus. Vegetation could not be ruled out on transthoracic echocardiogram.
--- NOTE | 2020-06-20 20:17 | PDOC.CPN ---
- Subjective Date: 06/20/20 Time: 20:13 Interval history: He is answering [id number] appropriately today and more conversant. No chest pain. He underwent washout today without issues. - Review of Systems General: reports: fatigue. denies: fever/chills, weight/appetite/sleep changes, night sweats Respiratory: denies: cough, congestion, shortness of breath, exercise intolerance Cardiovascular: reports: edema. denies: chest pain, palpitation, paroxysmal nocturnal dyspnea, orthopnea Gastrointestinal: denies: nausea, vomiting, diarrhea, constipation, abd pain, GI bleeding Musculoskeletal: reports: pain. denies: tenderness, stiffness, swelling, arthri tis/arthralgias Neurological: denies: numbness, syncope, seizure, weakness - Objective Allergies/Adverse Reactions: Allergies Allergy/AdvReac Type Severity Reaction Status Date / Time No Known Allergies Allergy Verified 07/07/16 15:25 Visit Medications: Current Medications Acetaminophen (Acetaminophen 325 Mg Tab) 650 mg PO Q4H PRN PRN Reason: Headache/Fever/Mild Pain (1-3) Hydrocodone Bitart/Acetaminophen (Hydrocodone/Acetaminophen 5/325 Mg Tablet) 1 tab PO Q4H PRN PRN Reason: Moderate Pain (4-6) Last Admin: 06/20/20 16:46 Dose: 1 tab Documented by: Bisacodyl (Bisacodyl 10 Mg Supp) 10 mg [place] DAILYPRN PRN PRN Reason: Constipation Calcium Carbonate (Calcium Carbonate 500 Mg Chewtab) 1,000 mg PO Q4H PRN PRN Reason: Heartburn or Indigestion Cyanocobalamin (Cyanocobalamin (Vitamin B-12) 1,000 Mcg Tab) 1,000 mcg PO DAILY [facility] Last Admin: 06/20/20 12:07 Dose: 1,000 mcg Documented by: Ferrous Sulfate (Ferrous Sulfate 325 Mg Tab) 325 mg PO [facility] Last Admin: 06/20/20 12:07 Dose: 325 mg Documented by: Folic Acid (Folic Acid 1 Mg Tab) 1 mg PO DAILY [facility] Last Admin: 06/20/20 12:07 Dose: 1 mg Documented by: Guaifenesin (Diabetic Tussin 200 Mg/10 Ml Udcup) 200 mg PO Q4H PRN PRN Reason: Cough Piperacillin Sod/Tazobactam (Sod 3.375 gm/ Sodium Chloride) 100 mls @ 200 mls/hr IVPB 0200,0800,1400,2000 [facility] Last Admin: 06/20/20 16:54 Dose: 100 mls Documented by: Norepinephrine Bitartrate (Levophed) 250 mls @ 0 mls/hr IVPB INF PRN; Protocol PRN Reason: SBP less than 100 Vancomycin HCl 1 gm/ Device 200 mls @ 200 mls/hr IVPB 0000,1200 [facility] Last Admin: 06/20/20 12:08 Dose: 200 mls Documented by: Sodium Bicarbonate 100 meq/ (Dextrose/Water) 1,100 mls @ 150 mls/hr IV .Q7H20M [facility] Last Admin: 06/20/20 16:55 Dose: Not Given Documented by: Lactulose (Lactulose 20 Gm/30 Ml Udcup) 20 gm PO DAILYPRN PRN PRN Reason: Constipation Loperamide HCl (Loperamide Hcl 2 Mg Cap) 2 mg PO PRN PRN PRN Reason: Diarrhea/Loose Stools Loratadine (Loratadine 10 Mg Tab) 10 mg PO DAILYPRN PRN PRN Reason: Sinus Symptoms Miscellaneous Medication (Pharmacy To Dose Vancomycin) 1 each IVPB .VANCOMYCIN PRN PRN Reason: Pharmacy to dose Morphine Sulfate (Morphine 2 Mg/Ml Vial) 2 mg SLOW IVP Q4H PRN PRN Reason: Pain Last Admin: 06/20/20 12:08 Dose: 2 mg Documented by: Ondansetron HCl (Ondansetron Odt 4 Mg Tab) 4 mg PO Q6H PRN PRN Reason: Nausea/Vomiting Ondansetron HCl (Ondansetron Pf 4 Mg/2 Ml Vial) 4 mg IVP Q6H PRN PRN Reason: Nausea/Vomiting Pantoprazole Sodium (Pantoprazole 40 Mg Tab) 40 mg PO DAILY [facility] Last Admin: 06/20/20 12:07 Dose: 40 mg Documented by: Senna/Docusate Sodium (Senokot S 8.6-50 Mg Tab) 2 tab PO BID PRN PRN Reason: Constipation Sodium Chloride (Sodium Chloride 0.65% Nasal 44 Ml Bot) 0 ml EA NARE QIDPRN PRN PRN Reason: Nasal Congestion Sodium Chloride (Flush - Normal Saline 10 Ml Syringe) 10 ml IVF Q12HR DIANA Sodium Chloride (Flush - Normal Saline 10 Ml Syringe) 10 ml IVF PRN PRN PRN Reason: Saline Flush Thiamine HCl (Thiamine 100 Mg Tab) 100 mg PO DAILY DIANA Last Admin: 06/20/20 12:07 Dose: 100 mg Documented by: Throat Lozenges (Cepastat Lozenges 1 Robbin) 1 robbin PO Q2H PRN PRN Reason: Sore Throat Zolpidem Tartrate (Zolpidem Tartrate 5 Mg Tab) 5 mg PO HSPRN PRN PRN Reason: Insomnia Vital Signs & Weight: Vital Signs Temp 06/20/20 19:23 98.0 F 06/20/20 15:46 98.2 F 06/20/20 11:28 97.8 F Weight 210 lb 1.608 oz - Physical Exam General: no apparent distress HEENT: mucus membranes moist Neck: supple neck Cardiac: tachycardia Lungs: clear to auscultation Neuro: no lateralizing findings Abdomen: active bowel sounds Extremities: 1+ LE edema Skin: clear Musculoskeletal: normal range of motion - Labs Result Diagrams: 06/20/20 03:54 06/20/20 03:54 - Telemetry Sinus rhythms and dysrhythmias: sinus tachycardia - Assessment/Plan Assessment/Plan: 1. MRSA bacteremia 2. MRSA infection of hip 3. Hx of SVT s/p ablation 4. Liver cirrhosis. PLAN: - Echo showed hyperdynamic EF consistent with septic like picture. - Aortic valve was very calcified and cannot exclude endocarditis however valve function appears to be intact. - At this time he would need a SHAD for better evaluation of the valve but he is not a candidate as he has esophageal varices and would be high risk for lifethreatening bleed if SHAD were to be done. Would recommend against SHAD and just treat endocarditis with Abx as it would be same length of therapy as with osteomyelitis. - Will follow.
[2020-06-21 00:14] LABS: Vancomycin, Trough 31.5 ug/mL
--- NOTE | 2020-06-21 00:19 | CON ---
DATE OF CONSULTATION: 06/20/2020 REASON FOR CONSULTATION: Recurrence of right hip infection. HISTORY OF PRESENT ILLNESS: A 55-year-old whom I had seen multiple times in the past, last admission that I saw this patient was in March 2017. 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 He had a hip replacement and then that became infected and with MRSA retrieved, Dr. Castellano removed the implant and I think he had a spacer only. Had been fairly well, although there is some dispute as to what current functional status he had. His relatives state that he was mostly limited within his apartment. He was able to transfer and walk around with the help of a cane and a walker, but did not go outside much. All his purchases were made through deliveries. About two weeks before, he started having issues with fever and progressively worsening right hip pain and he had to be admitted. There was evidence of erythema and swelling of the right hip. His O2 saturations were 99 on room air, he was tachycardia at 118, his BP was 110/60, and his temperature 99.3. The patient had a right hip irrigation and debridement by Dr. Bob, and the operative note was reviewed. Upon incision, there was obvious purulent exudate. Cultures were taken, and the incision was extended down to the fascia level. There was purulent material deep to the fascia as well, which tracked anteriorly over the hip and down to his thigh in the subcutaneous tissues. This was debrided down to the bony level and lavaged and patient was transferred to the floor. He is in the IMCU. Right now, he is awake, alert, and oriented. He has moderate to severe pain in the right hip area. He denies any headaches. No visual symptoms, sore throat, odynophagia, or dysphagia. He has no chest pain or shortness of breath. A little bit of abdominal tenderness, but not as spontaneously, only during palpation. He is having some issues in controlling the voiding stream, and he needs help to prevent soilage of his perineal area. The knee is not painful and the remainder aspect of is appendicular structures are not tender. PAST MEDICAL HISTORY: Includes alcoholism, liver cirrhosis, portal hypertension, esophageal varices, prior multiple episodes of MRSA infection of the right hip with bacteremia, right hip replacement and then infection again, and evidence of pubic osteomyelitis. He had been on doxycycline suppressive therapy for many years but had stopped, and I had not seen the patient in a long time. PAST SURGICAL HISTORY: There is a history of cholecystitis, managed with cholecystostomy; ERCP with sphincterotomy in 2016; banding of esophageal varices. ALLERGIES: NONE. SOCIAL HISTORY: The last time he drank was more than 2 years ago. He is a former smoker. He lives by himself in [place]. He is disabled. FAMILY HISTORY: Cirrhosis. CURRENT MEDICATIONS: Include: 1. Dulcolax. 2. Tums. 3. Feosol. 4. Folvite. 5. Lactulose. 6. Imodium. 7. Claritin. 8. Pipracil. 9. Tazobactam. 10. Vancomycin. PHYSICAL EXAMINATION: VITAL SIGNS: T-max 98.6, heart rate 120, respiratory rate 26, O2 saturation 96%. SKIN: Shows the anterior wound packed at this moment. Has IJ central line in the right neck position. He is a little bit pale, but no other wounds are noted. He does not have a Hurd catheter. HEENT: Ocular movements, conjugate. Somewhat pale conjunctivae. Oral cavity is dry. Numerous teeth in place with some significant enamel dryness. NECK: No jugular vein distention. LUNGS: Symmetric air entry. No crackles or wheezing. HEART: S1, S2. Regular rate. ABDOMEN: Distended. There is a possible fluid wave but not very strong. No organomegaly noted. No bladder distention. MUSCULOSKELETAL: Marked limitation in range of motion of the right hip. There is marked swelling there as well. NEUROLOGIC: His pulses are 1+ in dorsalis pedis. There is at least 2+ edema in lower extremities. He is able to move toes and upper extremities well. He is awake, oriented, follows commands, a little bit of difficulty with recollection of events. LABORATORY DATA: Urinalysis with greater than 50 wbc's. The white cell count was 5.5 and now 3.1, hemoglobin 9.0, platelets 32 with 33% bands. INR 1.8. A pH of 7.38, pCO2 of 29, pO2 of 73. Creatinine started at 1.29, is at 1.57. AST 59, ALT 25, alkaline phosphatase 132. CRP 22. SARS-CoV PCR not detected. Cultures with MRSA in two sets of venous sample and one set from the hip. There is a chest x-ray from this admission with no acute intrathoracic abnormality. ASSESSMENT: History of alcoholism with liver cirrhosis, portal hypertension, and multiple recurring infections in the right hip, the last one was in 2017. Unfortunately, he stopped taking his suppressive doxycycline, and I have not seen him in the office in a long time and now he has recrudescence of infection, most likely due to persistence of osteomyelitis of the pubic area. He may have also osteomyelitis of the right femur. He will need an MRI performed down the road when he stabilizes and we will have to treat him for at least 6 weeks, probably 8 weeks with IV vancomycin depending on the MICs for the vancomycin. We will have to keep the vancomycin area under the curve high with a ratio AUC/FADIA greater than 400 and after that, I explained to him at this time he will need to continue with his doxycycline indefinitely to prevent this from happening again. The possibility of lumbosacral spine infection is less, endocarditis is not ruled out but appears to be lesser of a concern at this point. He will need a PICC line and disposition will likely involve transfer to rehab in [facility] or jail rehab. Job ID: [id number]
[2020-06-21] MEDS: Piperacillin/Tazobactam 3.375 GM in Sodium Chloride 0.9% 100 ML IVPB SCH ×4 (04:08→21:26)
[2020-06-21 06:12] LABS: Anion Gap 13 mmol/L (10-20); BUN (Urea Nitrogen) 46 mg/dL (8.4-25.7); Calc. Creatinine Clearance 68 mL/min (70-130); Calcium 7.4 mg/dL (7.8-10.44); Carbon Dioxide 22 mmol/L (22-29); Chloride 105 mmol/L (98-107); Estimated GFR-MDRD 44; Glucose 192 mg/dL (70-105); Potassium 4.2 mmol/L (3.5-5.1); Sodium 136 mmol/L (136-145)
[2020-06-21] MEDS: Morphine 2 MG/ML VIAL SLOW IVP PRN ×2 (06:35→16:43)
[2020-06-21 06:40] LABS: Hemoglobin 4.8 g/dL (14.0-18.0); Mean Corpuscular HGB CONC 33.7 g/dL (32.0-36.0); Mean Corpuscular Hemoglobin 32.3 pg (27.0-31.0); Mean Corpuscular Volume 95.8 fL (78.0-98.0); RBC Distribution Width 14.4 % (11.5-14.5); Red Blood Cell (RBC) Count 1.49 mill/uL (4.70-6.10); White Blood Cell (WBC) Count 8.3 thou/uL (4.8-10.8)
[2020-06-21 06:43] LABS: Band 18 % (5-11); Lymphocytes 6 % (21-51); MDiff Complete? YES; Mean Platelet Volume 12.3 fL (7.4-10.4); Metamyelocyte 3 % (0-0); Monocytes 4 % (0-10); Myelocyte 2 % (0-0); Neutrophil 67 % (42-75); Platelet Count 33 thou/uL (130-400); Platelet Morphology Comment Appears Decreased
[2020-06-21] MEDS: Cyanocobalamin (Vitamin B-12) 1,000 MCG TAB PO SCH (08:27)
[2020-06-21] MEDS: Ferrous Sulfate 325 MG TAB PO SCH (08:27)
[2020-06-21] MEDS: Folic Acid 1 MG TAB PO SCH (08:27)
[2020-06-21] MEDS: Thiamine 100 MG TAB PO SCH (08:27)
[2020-06-21] MEDS: HYDROcodone/Acetaminophen 5/325 mg Tablet PO PRN (08:28)
[2020-06-21 09:21] LABS: Hemoglobin 4.7 g/dL (14.0-18.0); Mean Corpuscular HGB CONC 33.8 g/dL (32.0-36.0); Mean Corpuscular Hemoglobin 32.6 pg (27.0-31.0); Mean Corpuscular Volume 96.7 fL (78.0-98.0); Mean Platelet Volume 12.1 fL (7.4-10.4); Platelet Count 27 thou/uL (130-400); RBC Distribution Width 14.3 % (11.5-14.5); Red Blood Cell (RBC) Count 1.43 mill/uL (4.70-6.10); White Blood Cell (WBC) Count 8.2 thou/uL (4.8-10.8)
[2020-06-21] MEDS: Sodium Bicarbonate 100 MEQ in Dextrose 5% in Water 1,000 ML IV SCH ×3 (10:14→21:28)
--- NOTE | 2020-06-21 12:30 | PDOC.CPN ---
- Subjective Date: 06/21/20 Time: 12:28 Interval history: [place] more SOB today. - Review of Systems General: reports: fatigue. denies: fever/chills, weight/appetite/sleep changes, night sweats Respiratory: reports: shortness of breath. denies: cough, congestion, exercise intolerance Cardiovascular: denies: chest pain, palpitation, edema, paroxysmal nocturnal dyspnea, orthopnea Gastrointestinal: denies: nausea, vomiting, diarrhea, constipation, abd pain, GI bleeding Musculoskeletal: reports: pain. denies: tenderness, stiffness, swelling, arthritis/arthralgias Neurological: denies: numbness, syncope, seizure, weakness - Objective Allergies/Adverse Reactions: Allergies Allergy/AdvReac Type Severity Reaction Status Date / Time No Known Allergies Allergy Verified 07/07/16 15:25 Visit Medications: Current Medications Acetaminophen (Acetaminophen 325 Mg Tab) 650 mg PO Q4H PRN PRN Reason: Headache/Fever/Mild Pain (1-3) Hydrocodone Bitart/Acetaminophen (Hydrocodone/Acetaminophen 5/325 Mg Tablet) 1 tab PO Q4H PRN PRN Reason: Moderate Pain (4-6) Last Admin: 06/21/20 08:28 Dose: 1 tab Documented by: Bisacodyl (Bisacodyl 10 Mg Supp) 10 mg ND DAILYPRN PRN PRN Reason: Constipation Calcium Carbonate (Calcium Carbonate 500 Mg Chewtab) 1,000 mg PO Q4H PRN PRN Reason: Heartburn or Indigestion Cyanocobalamin (Cyanocobalamin (Vitamin B-12) 1,000 Mcg Tab) 1,000 mcg PO DAILY [facility] Last Admin: 06/21/20 08:27 Dose: 1,000 mcg Documented by: Ferrous Sulfate (Ferrous Sulfate 325 Mg Tab) 325 mg PO [facility] Last Admin: 06/21/20 08:27 Dose: 325 mg Documented by: Folic Acid (Folic Acid 1 Mg Tab) 1 mg PO DAILY [facility] Last Admin: 06/21/20 08:27 Dose: 1 mg Documented by: Guaifenesin (Diabetic Tussin 200 Mg/10 Ml Udcup) 200 mg PO Q4H PRN PRN Reason: Cough Piperacillin Sod/Tazobactam (Sod 3.375 gm/ Sodium Chloride) 100 mls @ 200 mls/hr IVPB 0200,0800,1400,2000 [facility] Last Admin: 06/21/20 08:28 Dose: 100 mls Documented by: Norepinephrine Bitartrate (Levophed) 250 mls @ 0 mls/hr IVPB INF PRN; Protocol PRN Reason: SBP less than 100 Sodium Bicarbonate 100 meq/ (Dextrose/Water) 1,100 mls @ 150 mls/hr IV .Q7H20M [facility] Last Admin: 06/21/20 10:14 Dose: 1,100 mls Documented by: Vancomycin HCl 1 gm/ Device 200 mls @ 200 mls/hr IVPB .[facility] Lactulose (Lactulose 20 Gm/30 Ml Udcup) 20 gm PO DAILYPRN PRN PRN Reason: Constipation Loperamide HCl (Loperamide Hcl 2 Mg Cap) 2 mg PO PRN PRN PRN Reason: Diarrhea/Loose Stools Loratadine (Loratadine 10 Mg Tab) 10 mg PO DAILYPRN PRN PRN Reason: Sinus Symptoms Miscellaneous Medication (Pharmacy To Dose Vancomycin) 1 each IVPB .VANCOMYCIN PRN PRN Reason: Pharmacy to dose Morphine Sulfate (Morphine 2 Mg/Ml Vial) 2 mg SLOW IVP Q4H PRN PRN Reason: Pain Last Admin: 06/21/20 06:35 Dose: 2 mg Documented by: Ondansetron HCl (Ondansetron Odt 4 Mg Tab) 4 mg PO Q6H PRN PRN Reason: Nausea/Vomiting Ondansetron HCl (Ondansetron Pf 4 Mg/2 Ml Vial) 4 mg IVP Q6H PRN PRN Reason: Nausea/Vomiting Pantoprazole Sodium (Pantoprazole 40 Mg Tab) 40 mg PO DAILY [facility] Last Admin: 06/21/20 08:27 Dose: 40 mg Documented by: Senna/Docusate Sodium (Senokot S 8.6-50 Mg Tab) 2 tab PO BID PRN PRN Reason: Constipation Sodium Chloride (Sodium Chloride 0.65% Nasal 44 Ml Bot) 0 ml EA NARE QIDPRN PRN PRN Reason: Nasal Congestion Sodium Chloride (Flush - Normal Saline 10 Ml Syringe) 10 ml IVF Q12HR [facility] Last Admin: 06/21/20 08:28 Dose: 10 ml Documented by: Sodium Chloride (Flush - Normal Saline 10 Ml Syringe) 10 ml IVF PRN PRN PRN Reason: Saline Flush Thiamine HCl (Thiamine 100 Mg Tab) 100 mg PO DAILY [facility] Last Admin: 06/21/20 08:27 Dose: 100 mg Documented by: Throat Lozenges (Cepastat Lozenges 1 Robbin) 1 robbin PO Q2H PRN PRN Reason: Sore Throat Zolpidem Tartrate (Zolpidem Tartrate 5 Mg Tab) 5 mg PO HSPRN PRN PRN Reason: Insomnia Vital Signs & Weight: Vital Signs Temp Pulse Ox 06/21/20 11:42 98.1 F 06/21/20 08:00 97.8 F 06/21/20 07:50 98 06/21/20 03:49 98.5 F Weight 210 lb 1.608 oz - Physical Exam General: no apparent distress HEENT: mucus membranes moist Neck: supple neck Cardiac: tachycardia Lungs: normal breath sounds Neuro: no lateralizing findings Abdomen: active bowel sounds Extremities: 1+ LE edema Skin: clear Musculoskeletal: normal range of motion - Labs Result Diagrams: 06/21/20 08:43 06/21/20 05:15 - Telemetry Sinus rhythms and dysrhythmias: sinus tachycardia - Assessment/Plan Assessment/Plan: 1. MRSA bacteremia 2. MRSA infection of hip 3. Hx of SVT s/p ablation 4. Liver cirrhosis. 5. Anemia PLAN: - Likely SOB is related to low Hgb. Blood transfusion already going onmy evaluation. - No new recs. IV abx per ID. - No arrhythmias seen.
[2020-06-21] MEDS ORDERED: Vancomycin 1 GM in Premix Bag 1 BAG IVPB SCH (13:00)
--- NOTE | 2020-06-21 13:11 | PRG ---
DATE OF SERVICE: 06/21/2020 SUBJECTIVE: The patient is doing relatively well. All things considered. OBJECTIVE: VITAL SIGNS: Temperature is 98.1, pulse 120, blood pressure 120/70, O2 saturation 98%. HEENT: Unremarkable. NECK: No JVD. LUNGS: Clear. CARDIAC: S1 and S2. Regular. ABDOMEN: Soft. EXTREMITIES: He has a drain coming from his right hip. LABORATORY DATA: Hemoglobin 4.7, hematocrit 13.9, and platelet count 27. Sodium 136, potassium 4.2, chloride 105, CO2 of 22, BUN 46, creatinine 1.6, glucose 192. ASSESSMENT: 1. Severe anemia. 2. Infected right hip. 3. Hypoalbuminemia. 4. Renal insufficiency. PLAN: 1. The patient is receiving blood-looks like one PRBC so far and another to follow. 2. Antibiotics per ID. Job ID: [id number]
--- NOTE | 2020-06-21 19:23 | PDOC.HOSPP ---
- Subjective Encounter Date: 06/21/20 Encounter Time: 19:21 Subjective: F/u: MRSA infection of right hip, anemia The patient has severe hip pain. He states 2 mg morphine does not help and is requesting 4 mg morphine. He states he had norco without much relief today He has not had a bowel movement but didn't really eat anything until today. he states someone told him to not move for a few days but is anxious to be able to do leg exercises. He i - Objective Vital Signs & Weight: Vital Signs (12 hours) Temp Pulse Ox 06/21/20 15:33 98.0 F 06/21/20 11:42 98.1 F 06/21/20 08:00 97.8 F 06/21/20 07:50 98 Weight Weight 210 lb 1.608 oz Most Recent Monitor Data Heart Rate from ECG 112 NIBP 136/85 NIBP BP-Mean 102 Respiration from ECG 22 SpO2 98 I&O: 06/20/20 06/21/20 06/22/20 06:59 06:59 06:59 Intake Total 1839 002 3586 Output Total 024 616 4063 Balance 848 -190 180 Result Diagrams: 06/21/20 08:43 06/21/20 05:15 Hospitalist ROS - Review of Systems Constitutional: denies: fever, chills - Medication Medications: Active Medications Generic Name Dose Route Start Last Admin Trade Name Freq PRN Reason Stop Dose Admin Hydrocodone Bitart/Acetaminophen 1 tab 06/18/20 19:02 06/21/20 08:28 Hydrocodone/Acetaminophen 5/325 Mg Tablet PO 1 tab Q4H PRN Administration Moderate Pain (4-6) Cyanocobalamin 1,000 mcg 06/19/20 09:00 06/21/20 08:27 Cyanocobalamin (Vitamin B-12) 1,000 Mcg Tab PO 1,000 mcg DAILY DIANA Administration Ferrous Sulfate 325 mg 06/19/20 08:00 06/21/20 08:27 Ferrous Sulfate 325 Mg Tab PO 325 mg QAM-WM DIANA Administration Folic Acid 1 mg 06/19/20 09:00 06/21/20 08:27 Folic Acid 1 Mg Tab PO 1 mg DAILY DIANA Administration Piperacillin Sod/Tazobactam 100 mls @ 200 mls/hr 06/18/20 20:00 06/21/20 13:5 5 Sod 3.375 gm/ Sodium Chloride IVPB 100 mls 0200,0800,1400,2000 DIANA Administration Sodium Bicarbonate 100 meq/ 1,100 mls @ 150 mls/hr 06/19/20 18:30 06/21/20 15:55 Dextrose/Water IV Not Given .Q7H20M DIANA Morphine Sulfate 2 mg 06/18/20 19:02 06/21/20 16:43 Morphine 2 Mg/Ml Vial SLOW IVP 2 mg Q4H PRN Administration Pain Pantoprazole Sodium 40 mg 06/19/20 09:00 06/21/20 08:27 Pantoprazole 40 Mg Tab PO 40 mg DAILY DIANA Administration Sodium Chloride 10 ml 06/20/20 21:00 06/21/20 08:28 Flush - Normal Saline 10 Ml Syringe IVF 10 ml Q12HR DIANA Administration Thiamine HCl 100 mg 06/19/20 09:00 06/21/20 08:27 Thiamine 100 Mg Tab PO 100 mg DAILY DIANA Administration - Exam General Appearance: NAD, awake alert Eye: PERRL, anicteric sclera ENT: normocephalic atraumatic, no oropharyngeal lesions Neck: no JVD Heart: RRR, no murmur, no gallops, no rubs Respiratory: CTAB, no wheezes, no rales, no ronchi Gastrointestinal: soft, non-tender, non-distended, normal bowel sounds Extremities: 2+ LE edema Skin: normal turgor, no lesions, no rashes Neurological: cranial nerve grossly intact, normal sensation to touch, no focal deficits, no new deficit Musculoskeletal: normal tone, normal strength, no muscle wasting Psychiatric: normal affect, normal behavior, A&O x 3 Hosp A/P - Plan Chest Xray 06/20: normal Hip X ray : presumed infection in the right hip This is a 55 year old male admitted for MRSA infection right hip, s/p right hip irrigation and debridement MRSA infection right hip s/p irrigation and debridement - continue IV vancomycin and zosyn. He is s/p Irrigation and debridement 06/20 - will need long-term doxycycline per ID after that - will switch to fentanyl for pain given renal impairment Severe anemia - Hb 4.3 today. Given 2 units of PRBC. Will check another CBC JOHANNA - creatinine increasing to 1.65. Was started on IV fluids but discontinued due to severe edema bilaterally will give one dose IV lasix - check BNP and repeat BMP Constipation - continue home psyllium
[2020-06-21] MEDS ORDERED: Furosemide 20 MG/2 ML VIAL SLOW IVP SCH (19:45)
[2020-06-21] MEDS ORDERED: Metamucil PACK PO SCH (19:45)
[2020-06-21 19:55] LABS: Hemoglobin 5.9 g/dL (14.0-18.0); Mean Corpuscular HGB CONC 34.4 g/dL (32.0-36.0); Mean Corpuscular Hemoglobin 31.6 pg (27.0-31.0); Mean Corpuscular Volume 91.8 fL (78.0-98.0); Mean Platelet Volume 11.8 fL (7.4-10.4); Platelet Count 32 thou/uL (130-400); RBC Distribution Width 15.7 % (11.5-14.5); Red Blood Cell (RBC) Count 1.86 mill/uL (4.70-6.10); White Blood Cell (WBC) Count 12.8 thou/uL (4.8-10.8)
[2020-06-21 20:10] LABS: Anion Gap 14 mmol/L (10-20); BUN (Urea Nitrogen) 42 mg/dL (8.4-25.7); Calc. Creatinine Clearance 77 mL/min (70-130); Calcium 7.7 mg/dL (7.8-10.44); Carbon Dioxide 25 mmol/L (22-29); Estimated GFR-MDRD 50; Glucose 188 mg/dL (70-105); Potassium 4.5 mmol/L (3.5-5.1)
[2020-06-21 20:22] LABS: Chloride 106 mmol/L (98-107); Sodium 140 mmol/L (136-145)
[2020-06-21] MEDS: Fentanyl 100 MCG/2 ML VIAL SLOW IVP PRN (21:18)
[2020-06-21] MEDS: Morphine 4 MG/ML VIAL SLOW IVP PRN (23:21)
[2020-06-22] LABS: Vancomycin, Random 19.9 ug/mL (See Comment)
[2020-06-22] MEDS: Fentanyl 100 MCG/2 ML VIAL SLOW IVP PRN ×4 (02:49→17:10)
[2020-06-22] MEDS: Piperacillin/Tazobactam 3.375 GM in Sodium Chloride 0.9% 100 ML IVPB SCH ×2 (02:50→07:21)
[2020-06-22 03:39] LABS: Platelet Count 29 thou/uL (130-400)
[2020-06-22 03:45] LABS: Anion Gap 14 mmol/L (10-20); BUN (Urea Nitrogen) 39 mg/dL (8.4-25.7); Calc. Creatinine Clearance 80 mL/min (70-130); Calcium 7.9 mg/dL (7.8-10.44); Carbon Dioxide 26 mmol/L (22-29); Chloride 103 mmol/L (98-107); Estimated GFR-MDRD 53; Glucose 197 mg/dL (70-105); Iron 121 ug/dL (65-175); Iron Binding Capacity, Total 108 mcg/dL (261-462); Iron Binding Capacity, Total 110 mcg/dL (261-462); Potassium 4.3 mmol/L (3.5-5.1); Sodium 139 mmol/L (136-145)
[2020-06-22 03:46] LABS: Iron 126 ug/dL (65-175)
[2020-06-22 04:43] LABS: Band 19 % (5-11); Crenated RBC SLIGHT = 1-5 cells (100X) (None Seen); Eosinophils 2 % (0-10); Hemoglobin 6.2 g/dL (14.0-18.0); Hypochromia SLIGHT = 6-15 cells (100X) (0-5/hpf); Lymphocytes 7 % (21-51); MDiff Complete? YES; Mean Corpuscular HGB CONC 34.3 g/dL (32.0-36.0); Mean Corpuscular Hemoglobin 31.2 pg (27.0-31.0); Mean Corpuscular Volume 90.9 fL (78.0-98.0); Metamyelocyte 3 % (0-0); Monocytes 4 % (0-10); Neutrophil 65 % (42-75); Platelet Morphology Comment Appears Decreased; RBC Distribution Width 15.4 % (11.5-14.5); Red Blood Cell (RBC) Count 1.99 mill/uL (4.70-6.10); Schistocytes SLIGHT = 2-5 cells (100X) (0-1/hpf); Target Cells SLIGHT = 2-5 cells (100X) (0-1/hpf); White Blood Cell (WBC) Count 11.7 thou/uL (4.8-10.8)
[2020-06-22] MEDS: Morphine 4 MG/ML VIAL SLOW IVP PRN ×4 (05:32→23:27)
[2020-06-22] MEDS: Sodium Bicarbonate 100 MEQ in Dextrose 5% in Water 1,000 ML IV SCH ×3 (06:13→23:34)
[2020-06-22] MEDS: Cyanocobalamin (Vitamin B-12) 1,000 MCG TAB PO SCH (07:21)
[2020-06-22] MEDS: Ferrous Sulfate 325 MG TAB PO SCH (07:21)
[2020-06-22] MEDS: Folic Acid 1 MG TAB PO SCH (07:21)
[2020-06-22] MEDS: Thiamine 100 MG TAB PO SCH (07:22)
[2020-06-22] MEDS: Metamucil PACK PO SCH (07:24)
--- NOTE | 2020-06-22 08:42 | PRG ---
DATE OF SERVICE: 06/22/2020 SUBJECTIVE: The patient is doing well. No concerns. He is improving. Less pain in his thigh. He has questions about eating. He has been afebrile overnight. He received blood transfusion yesterday. Hemoglobin is 6.2. OBJECTIVE: GENERAL: He is alert, sitting upright, in no apparent distress. HEENT: Normocephalic, atraumatic. LUNGS: Breathing comfortably. EXTREMITIES: Right leg has swelling of the thigh. He has a drain in place. Decreasing erythema. He is edematous in both legs distally. IMPRESSION: Right hip sepsis, status post irrigation and debridement. PLAN: The patient will continue his intravenous antibiotics. We will remove the drain tomorrow. He will continue to mobilize with physical therapy. He can weight bear as tolerated. He asked if a upper inspector can see him, we will arrange this. Job ID: [id number]
[2020-06-22] MEDS ORDERED: Vancomycin HCl 500 MG in Sodium Chloride 0.9% 100 ML IVPB SCH (09:00)
--- NOTE | 2020-06-22 13:16 | PDOC.HOSPP ---
- Subjective Encounter Date: 06/22/20 Encounter Time: 13:15 Subjective: The patient was still anemic today. He received 3 units of PRBC, but hemoglobin only increased to 6.2. He denies abdominal pain. He reports severe pain in hip with any kind of movement Fentanyl helps his pain . He has not had a bowel movement yet. He denies abdominal pain - Objective Vital Signs & Weight: Vital Signs (12 hours) Temp Pulse Ox 06/22/20 11:16 98.9 F 06/22/20 08:00 100 06/22/20 07:31 97.2 F L 06/22/20 03:35 97.1 F L 06/22/20 01:19 100 Weight Weight 210 lb 1.608 oz Most Recent Monitor Data Heart Rate from ECG 112 NIBP 130/78 NIBP BP-Mean 95 Respiration from ECG 14 SpO2 92 I&O: 06/21/20 06/22/20 06/23/20 06:59 06:59 06:59 Intake Total 360 4280 0 Output Total 550 3950 Balance -190 330 0 Result Diagrams: 06/22/20 02:55 06/22/20 02:55 Hospitalist ROS - Review of Systems Constitutional: denies: fever, chills - Medication Medications: Active Medications Generic Name Dose Route Start Last Admin Trade Name Freq PRN Reason Stop Dose Admin Hydrocodone Bitart/Acetaminophen 1 tab 06/18/20 19:02 06/21/20 08:28 Hydrocodone/Acetaminophen 5/325 Mg Tablet PO 1 tab Q4H PRN Administration Moderate Pain (4-6) Cyanocobalamin 1,000 mcg 06/19/20 09:00 06/22/20 07:21 Cyanocobalamin (Vitamin B-12) 1,000 Mcg Tab PO 1,000 mcg DAILY DIANA Administration Fentanyl 25 mcg 06/21/20 19:34 06/22/20 11:30 Fentanyl 100 Mcg/2 Ml Vial SLOW IVP 25 mcg Q3H PRN Administration Severe Pain (7-10) Ferrous Sulfate 325 mg 06/19/20 08:00 06/22/20 07:21 Ferrous Sulfate 325 Mg Tab PO 325 mg QAM-WM DIANA Administration Folic Acid 1 mg 06/19/20 09:00 06/22/20 07:21 Folic Acid 1 Mg Tab PO 1 mg DAILY DIANA Administration Piperacillin Sod/Tazobactam 100 mls @ 200 mls/hr 06/18/20 20:00 06/22/20 07:21 Sod 3.375 gm/ Sodium Chloride IVPB 100 mls 0200,0800,1400,2000 DIANA Administration Sodium Bicarbonate 100 meq/ 1,100 mls @ 150 mls/hr 06/19/20 18:30 06/22/20 12:20 Dextrose/Water IV Not Given .Q7H20M DIANA Morphine Sulfate 4 mg 06/21/20 19:29 06/22/20 09:30 Morphine 4 Mg/Ml Vial SLOW IVP 4 mg Q4H PRN Administration Moderate to Severe Pain (6-10) Pantoprazole Sodium 40 mg 06/19/20 09:00 06/22/20 07:22 Pantoprazole 40 Mg Tab PO 40 mg DAILY DIANA Administration Psyllium Hydrophilic Mucilloid 1 pk 06/22/20 09:00 06/22/20 07:24 Metamucil Pack PO 1 pk DAILY DIANA Administration Sodium Chloride 10 ml 06/20/20 21:00 06/22/20 07:24 Flush - Normal Saline 10 Ml Syringe IVF 10 ml Q12HR DIANA Administration Thiamine HCl 100 mg 06/19/20 09:00 06/22/20 07:22 Thiamine 100 Mg Tab PO 100 mg DAILY DIANA Administration - Exam General Appearance: NAD, awake alert Eye: PERRL, anicteric sclera ENT: normocephalic atraumatic, no oropharyngeal lesions Neck: no JVD Heart: RRR, no murmur, no gallops, no rubs Respiratory: CTAB, no wheezes, no rales, no ronchi Gastrointestinal: non-tender, non-distended Gastrointestinal - other findings: firm, nontender, mild distension. Tympanic to percussion Extremities: no cyanosis, no clubbing, 1+ LE edema Hosp A/P - Plan Chest Xray 06/20: normal Hip X ray : presumed infection in the right hip This is a 55 year old male admitted for MRSA infection right hip, s/p right hip irrigation and debridement MRSA infection right hip s/p irrigation and debridement POD 2 - was started on IV vancomycin and zosyn. He is s/p Irrigation and debridement 06/20 . Will discuss with Dr. Swan about discontinuing zosyn - will need long-term doxycycline per ID after that - continue fentanyl prn for pain - continue with physical therapy as tolerated Severe anemia - Hb improved to 6.2. Getting transfused one unit PRBC, then repeat CBC after. - check CT abdomen/pelvis to evaluate for hematoma JOHANNA on CKD - creatinine improving to 1.4. Was given one dose IV lasix due to peripheral edema - BNP mildly elevated at 857 Constipation - continue home psyllium
[2020-06-22 21:33] LABS: Mean Corpuscular HGB CONC 34.6 g/dL (32.0-36.0); Mean Corpuscular Hemoglobin 31.5 pg (27.0-31.0); Mean Corpuscular Volume 91.1 fL (78.0-98.0); Mean Platelet Volume 12.6 fL (7.4-10.4); Platelet Count 29 thou/uL (130-400); RBC Distribution Width 15.3 % (11.5-14.5); Red Blood Cell (RBC) Count 2.22 mill/uL (4.70-6.10); White Blood Cell (WBC) Count 15.5 thou/uL (4.8-10.8)
--- NOTE | 2020-06-22 21:49 | CT ---
NONCONTRAST CT ABDOMEN AND PELVIS: History: Anemia, recent hip surgery. Evaluate for hematoma. Comparison: 06-22-16 FINDINGS: Minimal atelectasis present at each lung base. Vascular calcifications are seen in the abdominal aorta and involving the iliac arteries. Post-operative changes related to cholecystectomy are now present. There is a small amount of pneumob charlie. A 3.7 cm low density focus is seen within the more inferior aspect of the medial segment left h epatic lobe adjacent to the falciform ligament which on non-enhanced CT exam does demonstrate fluid a ttenuation and may represent a cyst. This was not seen on the prior CT exam. The liver is small in si ze with cirrhotic morphology. The spleen is enlarged and measures 21 cm in craniocaudal dimensions. There is an ill-defined wedged shaped low density area seen obliquely through the body of the spleen. This is difficult to further e valuation without IV contrast but it is not thought to be artifactual and may represent splenic infar ction. Noted on prior exam, there is evidence of portal hypertension with large splenic varices, some of which do demonstrate calcification. These large splenic varices were present on the prior exam. The pancreas, bilateral adrenal glands, and right kidney demonstrate a grossly non-enhanced CT appear ance. There are several scattered approximately 2 mm nonobstructing left renal calculi present. A Hurd catheter is present in the urinary bladder which is decompressed. There is increased density material within the urinary bladder suggesting the possibility of hemorrhage. Small amount of ascites is present adjacent to the liver and spleen, as well as in the right pericoli c gutter and in pelvis. There is colonic diverticulosis. Loops of small bowel are normal in caliber. There are surgical clips seen in the right anterolateral right upper quadrant just below the level of the liver. There is evidence of subcutaneous edema seen about the abdomen and pelvis bilaterally. There is absence of the right femoral head with irregularity of the acetabulum and increased density material in the region of the acetabulum which could be related to hemorrhage or abnormal material se condary to infectious process. There is a drainage catheter which courses just anterior to the intert rochanteric region of the right hip. There is a large increased density collection which is incomplet lyubov imaged laterally. This increased density area is likely related to large area of hemorrhage which measures 12.4 cm craniocaudal x 11.6 cm AP. The transverse dimension is unable to be adequately rylee ured but measures 9.4 cm where seen. IMPRESSION: 1. Findings likely related to recent debridement in the region of the right hip. Drainage catheter is seen. Absence of right femoral head and irregularity of the acetabulum which could be related to in fection in this region. Increased density is seen in the region of the acetabulum which could be rela mariola to hemorrhage or debris secondary to infection. 2. Large hematoma right gluteal soft tissues adjacent to the right hip with associated subcutaneous e mphysema. The transverse dimension is unable to be measures, but the greatest dimension is 12.4 cm cr aniocaudal. 3. Cirrhotic morphology of the liver with evidence of cirrhosis and portal hypertension with very lar ge splenic varices and splenorenal shunt. 4. Splenomegaly with the spleen measuring 21 cm in craniocaudal dimensions. There is a low density ar ea within the body of the spleen which could be related to an area of splenic infarction. This is dif ficult to further evaluate without IV contrast. 5. Left hepatic lobe cyst. 6. Colonic diverticulosis. 7. Hurd catheter in the urinary bladder. There is increased density seen within the decompressed uri nary bladder suggesting hemorrhage. 8. Small amount of ascites. 9. Minimal pericardial effusion. 10. Cholecystectomy with evidence of pneumobilia. POS: HAMILTON
[2020-06-22] MEDS: Polyethylene Glycol 3350 17 GM Packet PO SCH (23:28)
[2020-06-23 03:47] LABS: Hemoglobin 6.9 g/dL (14.0-18.0); Mean Corpuscular HGB CONC 35.3 g/dL (32.0-36.0); Mean Corpuscular Hemoglobin 32.5 pg (27.0-31.0); Mean Corpuscular Volume 92.1 fL (78.0-98.0); Mean Platelet Volume 12.2 fL (7.4-10.4); Platelet Count 26 thou/uL (130-400); RBC Distribution Width 15.3 % (11.5-14.5); Red Blood Cell (RBC) Count 2.12 mill/uL (4.70-6.10); White Blood Cell (WBC) Count 13.7 thou/uL (4.8-10.8)
[2020-06-23 03:56] LABS: Anion Gap 10 mmol/L (10-20); BUN (Urea Nitrogen) 27 mg/dL (8.4-25.7); Calc. Creatinine Clearance 103 mL/min (70-130); Carbon Dioxide 30 mmol/L (22-29); Chloride 101 mmol/L (98-107); Estimated GFR-MDRD 70; Glucose 155 mg/dL (70-105); Potassium 4.1 mmol/L (3.5-5.1); Sodium 137 mmol/L (136-145)
[2020-06-23 04:07] LABS: Band 16 % (5-11); Eosinophils 2 % (0-10); Lymphocytes 3 % (21-51); MDiff Complete? YES; Metamyelocyte 1 % (0-0); Monocytes 3 % (0-10); Myelocyte 3 % (0-0); Neutrophil 72 % (42-75); Platelet Morphology Comment Appears Decreased
[2020-06-23] MEDS: Morphine 4 MG/ML VIAL SLOW IVP PRN (04:53)
[2020-06-23] MEDS: Sodium Bicarbonate 100 MEQ in Dextrose 5% in Water 1,000 ML IV SCH ×2 (06:14→11:25)
[2020-06-23] MEDS: Folic Acid 1 MG TAB PO SCH (09:07)
[2020-06-23] MEDS: Thiamine 100 MG TAB PO SCH (09:07)
[2020-06-23] MEDS: Ferrous Sulfate 325 MG TAB PO SCH (09:07)
[2020-06-23] MEDS: Cyanocobalamin (Vitamin B-12) 1,000 MCG TAB PO SCH (09:07)
[2020-06-23] MEDS: Metamucil PACK PO SCH (09:08)
[2020-06-23] MEDS: Polyethylene Glycol 3350 17 GM Packet PO SCH (09:08)
[2020-06-23] MEDS: HYDROcodone/Acetaminophen 5/325 mg Tablet PO PRN ×3 (10:17→21:03)
[2020-06-23 11:05] LABS: Vancomycin, Random 9.1 ug/mL (See Comment)
--- NOTE | 2020-06-23 14:10 | PDOC.CPN ---
- Subjective Date: 06/23/20 Time: 14:08 Interval history: No chest pain but fatigued and short winded. - Review of Systems General: reports: fatigue. denies: fever/chills, weight/appetite/sleep changes, night sweats Respiratory: reports: shortness of breath. denies: cough, congestion, exercise intolerance Cardiovascular: denies: chest pain, palpitation, edema, paroxysmal nocturnal dyspnea, orthopnea Gastrointestinal: denies: nausea, vomiting, diarrhea, constipation, abd pain, GI bleeding Musculoskeletal: denies: pain, tenderness, stiffness, swelling, arthritis/arthralgias Neurological: denies: numbness, syncope, seizure, weakness - Objective Allergies/Adverse Reactions: Allergies Allergy/AdvReac Type Severity Reaction Status Date / Time No Known Allergies Allergy Verified 07/07/16 15:25 Visit Medications: Current Medications Acetaminophen (Acetaminophen 325 Mg Tab) 650 mg PO Q4H PRN PRN Reason: Headache/Fever/Mild Pain (1-3) Hydrocodone Bitart/Acetaminophen (Hydrocodone/Acetaminophen 5/325 Mg Tablet) 1 tab PO Q4H PRN PRN Reason: Moderate Pain (4-6) Last Admin: 06/23/20 10:17 Dose: 1 tab Documented by: Bisacodyl (Bisacodyl 10 Mg Supp) 10 mg MN DAILYPRN PRN PRN Reason: Constipation Calcium Carbonate (Calcium Carbonate 500 Mg Chewtab) 1,000 mg PO Q4H PRN PRN Reason: Heartburn or Indigestion Cyanocobalamin (Cyanocobalamin (Vitamin B-12) 1,000 Mcg Tab) 1,000 mcg PO DAILY [facility] Last Admin: 06/23/20 09:07 Dose: 1,000 mcg Documented by: Fentanyl (Fentanyl 100 Mcg/2 Ml Vial) 25 mcg SLOW IVP Q3H PRN PRN Reason: Severe Pain (7-10) Last Admin: 06/22/20 17:10 Dose: 25 mcg Documented by: Ferrous Sulfate (Ferrous Sulfate 325 Mg Tab) 325 mg PO [facility] Last Admin: 06/23/20 09:07 Dose: 325 mg Documented by: Folic Acid (Folic Acid 1 Mg Tab) 1 mg PO DAILY [facility] Last Admin: 06/23/20 09:07 Dose: 1 mg Documented by: Guaifenesin (Diabetic Tussin 200 Mg/10 Ml Udcup) 200 mg PO Q4H PRN PRN Reason: Cough Norepinephrine Bitartrate (Levophed) 250 mls @ 0 mls/hr IVPB INF PRN; Protocol PRN Reason: SBP less than 100 Sodium Bicarbonate 100 meq/ (Dextrose/Water) 1,100 mls @ 150 mls/hr IV .Q7H20M [facility] Last Admin: 06/23/20 11:25 Dose: Not Given Documented by: Vancomycin HCl 750 mg/ Sodium (Chloride) 250 mls @ 250 mls/hr IVPB 1200,2359 [facility] Lactulose (Lactulose 20 Gm/30 Ml Udcup) 20 gm PO DAILYPRN PRN PRN Reason: Constipation Loperamide HCl (Loperamide Hcl 2 Mg Cap) 2 mg PO PRN PRN PRN Reason: Diarrhea/Loose Stools Loratadine (Loratadine 10 Mg Tab) 10 mg PO DAILYPRN PRN PRN Reason: Sinus Symptoms Miscellaneous Medication (Pharmacy To Dose Vancomycin) 1 each IVPB .VANCOMYCIN PRN PRN Reason: Pharmacy to dose Morphine Sulfate (Morphine 4 Mg/Ml Vial) 4 mg SLOW IVP Q4H PRN PRN Reason: Moderate to Severe Pain (6-10) Last Admin: 06/23/20 04:53 Dose: 4 mg Documented by: Ondansetron HCl (Ondansetron Odt 4 Mg Tab) 4 mg PO Q6H PRN PRN Reason: Nausea/Vomiting Ondansetron HCl (Ondansetron Pf 4 Mg/2 Ml Vial) 4 mg IVP Q6H PRN PRN Reason: Nausea/Vomiting Pantoprazole Sodium (Pantoprazole 40 Mg Tab) 40 mg PO DAILY [facility] Last Admin: 06/23/20 09:07 Dose: 40 mg Documented by: Polyethylene Glycol (Polyethylene Glycol 3350 17 Gm Packet) 17 gm PO DAILY [facility] Last Admin: 06/23/20 09:08 Dose: Not Given Documented by: Psyllium Hydrophilic Mucilloid (Metamucil Pack) 1 pk PO DAILY [facility] Last Admin: 06/23/20 09:08 Dose: 1 pk Documented by: Senna/Docusate Sodium (Senokot S 8.6-50 Mg Tab) 2 tab PO BID PRN PRN Reason: Constipation Sodium Chloride (Sodium Chloride 0.65% Nasal 44 Ml Bot) 0 ml EA NARE QIDPRN PRN PRN Reason: Nasal Congestion Sodium Chloride (Flush - Normal Saline 10 Ml Syringe) 10 ml IVF Q12HR [facility] Last Admin: 06/23/20 09:07 Dose: 10 ml Documented by: Sodium Chloride (Flush - Normal Saline 10 Ml Syringe) 10 ml IVF PRN PRN PRN Reason: Saline Flush Thiamine HCl (Thiamine 100 Mg Tab) 100 mg PO DAILY [facility] Last Admin: 06/23/20 09:07 Dose: 100 mg Documented by: Throat Lozenges (Cepastat Lozenges 1 Robbin) 1 robbin PO Q2H PRN PRN Reason: Sore Throat Zolpidem Tartrate (Zolpidem Tartrate 5 Mg Tab) 5 mg PO HSPRN PRN PRN Reason: Insomnia Vital Signs & Weight: Vital Signs Temp Pulse Pulse BP BP Pulse Ox Pulse Ox 06/23/20 11:00 97.9 F 06/23/20 10:08 105 H 107 H 113/72 125/80 96 100 06/23/20 07:00 97.9 F 06/23/20 03:53 97.3 F L Weight 210 lb 1.608 oz - Physical Exam General: alert & oriented x3 HEENT: mucus membranes moist Neck: supple neck Cardiac: tachycardia Lungs: normal breath sounds Neuro: grossly intact Abdomen: active bowel sounds Extremities: no edema Skin: clear Musculoskeletal: no pain - Labs Result Diagrams: 06/23/20 03:09 06/23/20 03:09 - Telemetry Sinus rhythms and dysrhythmias: sinus tachycardia - Assessment/Plan Assessment/Plan: 1. MRSA bacteremia 2. MRSA infection of hip 3. Hx of SVT s/p ablation 4. Liver cirrhosis. 5. Anemia PLAN: - Abx per ID - Blood transfusion. - No acute CV issues at this time. - Will sign off. Please call with any questions.
[2020-06-23] MEDS: Vancomycin HCl 750 MG in Sodium Chloride 0.9% 250 ML 250 ML IVPB SCH (14:55)
--- NOTE | 2020-06-23 15:08 | PRG ---
DATE OF SERVICE: 06/23/2020 SUBJECTIVE: Mr. Batista being transfused today. His intake and outputs positive 700. He has had no melena or bright red blood per rectum. OBJECTIVE: LUNGS: Clear. HEART: Regular rhythm. ABDOMEN: Soft. LABORATORY DATA: White count 13.7; hemoglobin 6.9, it was 7.0 last night; platelets 26,000. Electrolytes are unremarkable. Creatinine is 1.09. IMPRESSION: Blood loss anemia related to his surgery. He does not clinically appear to be having a gastrointestinal bleed. He has a 12 x 6 cm hematoma on a belly CT that likely accounts for his drop in hemoglobin at the side of his surgery. We will continue supportive care. I think endoscopy has significant risk associated with it bleeding from his gastrointestinal tract. Job ID: [id number]
--- NOTE | 2020-06-23 16:36 | PDOC.HOSPP ---
- Subjective Encounter Date: 06/23/20 Encounter Time: 11:00 Subjective: F/u: anemia, hip pain Patient continues to report severe pain in his right hip while he is standing up. Discussed findings of gluteal hematoma with the patient. Patient's hemoglobin noted to be 6.9 discussed plan to transfuse platelets and blood. Patient states he had an endoscopy years ago and was discovered to have esophageal varices and had banding. He denies any hematemesis, blood in his stools. - Objective Vital Signs & Weight: Vital Signs (12 hours) Temp Pulse Pulse BP BP Pulse Ox Pulse Ox 06/23/20 11:00 97.9 F 06/23/20 10:08 105 H 107 H 113/72 125/80 96 100 06/23/20 07:00 97.9 F Weight Weight 210 lb 1.608 oz Most Recent Monitor Data Heart Rate from ECG 103 NIBP 126/80 NIBP BP-Mean 95 Respiration from ECG 16 SpO2 99 I&O: 06/22/20 06/23/20 06/24/20 06:59 06:59 06:59 Intake Total 4280 3000 350 Output Total 3950 2300 Balance 330 700 350 Result Diagrams: 06/23/20 03:09 06/23/20 03:09 Hospitalist ROS - Review of Systems Constitutional: denies: fever, chills - Medication Medications: Active Medications Generic Name Dose Route Start Last Admin Trade Name Freq PRN Reason Stop Dose Admin Hydrocodone Bitart/Acetaminophen 1 tab 06/18/20 19:02 06/23/20 14:55 Hydrocodone/Acetaminophen 5/325 Mg Tablet PO 1 tab Q4H PRN Administration Moderate Pain (4-6) Cyanocobalamin 1,000 mcg 06/19/20 09:00 06/23/20 09:07 Cyanocobalamin (Vitamin B-12) 1,000 Mcg Tab PO 1,000 mcg DAILY DIANA Administration Fentanyl 25 mcg 06/21/20 19:34 06/22/20 17:10 Fentanyl 100 Mcg/2 Ml Vial SLOW IVP 25 mcg Q3H PRN Administration Severe Pain (7-10) Ferrous Sulfate 325 mg 06/19/20 08:00 06/23/20 09:07 Ferrous Sulfate 325 Mg Tab PO 325 mg QAM-WM DIANA Administration Folic Acid 1 mg 06/19/20 09:00 06/23/20 09:07 Folic Acid 1 Mg Tab PO 1 mg DAILY DIANA Administration Sodium Bicarbonate 100 meq/ 1,100 mls @ 150 mls/hr 06/19/20 18:30 06/23/20 11:25 Dextrose/Water IV Not Given .Q7H20M DIANA Vancomycin HCl 750 mg/ Sodium 250 mls @ 250 mls/hr 06/23/20 12:00 06/23/20 14:55 Chloride IVPB 250 mls 1200,2359 DIANA Administration Morphine Sulfate 4 mg 06/21/20 19:29 06/23/20 04:53 Morphine 4 Mg/Ml Vial SLOW IVP 4 mg Q4H PRN Administration Moderate to Severe Pain (6-10) Pantoprazole Sodium 40 mg 06/19/20 09:00 06/23/20 09:07 Pantoprazole 40 Mg Tab PO 40 mg DAILY DIANA Administration Polyethylene Glycol 17 gm 06/22/20 21:10 06/23/20 09:08 Polyethylene Glycol 3350 17 Gm Packet PO Not Given DAILY DIANA Psyllium Hydrophilic Mucilloid 1 pk 06/22/20 09:00 06/23/20 09:08 Metamucil Pack PO 1 pk DAILY DIANA Administration Sodium Chloride 10 ml 06/20/20 21:00 06/23/20 09:07 Flush - Normal Saline 10 Ml Syringe IVF 10 ml Q12HR DIANA Administration Thiamine HCl 100 mg 06/19/20 09:00 06/23/20 09:07 Thiamine 100 Mg Tab PO 100 mg DAILY DIANA Administration - Exam General Appearance: NAD, awake alert Eye: PERRL, anicteric sclera ENT: normocephalic atraumatic, no oropharyngeal lesions Neck: no JVD Heart: RRR, no murmur, no gallops, no rubs Respiratory: CTAB, no wheezes, no rales, no ronchi Gastrointestinal: soft, non-tender, non-distended, normal bowel sounds Extremities: 2+ LE edema Extremities - other findings: Right hip swelling and pain with warmth and tenderness. Skin: normal turgor, no lesions, no rashes Neurological: cranial nerve grossly intact, normal sensation to touch, no weakness, no new deficit Musculoskeletal: normal tone, normal strength, no muscle wasting Psychiatric: normal affect, normal behavior, A&O x 3 Hosp A/P - Plan Chest Xray 06/20: normal Hip X ray : presumed infection in the right hip CT abdomen pelvis: Large hematoma right gluteal soft tissues adjacent to the right hip with associated subcutaneous emphysema. Cirrhosis of the liver with portal hypertension with very large splenic varices and splenorenal shunt. Increased density in the region of the acetabulum which could be related to hemorrhage or debris. Left hepatic lobe cyst. Colonic diverticulosis. This is a 55 year old male admitted for MRSA infection right hip, s/p right hip irrigation and debridement MRSA infection right hip s/p irrigation and debridement POD 3 - was started on IV vancomycin and zosyn. He is s/p Irrigation and debridement 06/20 . Zosyn was discontinued 06/22 - will need long-term doxycycline per ID after that - continue fentanyl prn for pain - continue with physical therapy as tolerated . They have recommended rehab Large right gluteal hematoma of the right hip -Hemoglobin 6.9 today. Transfusing 1 unit of blood. Appreciate Ortho recommendations. PT is evaluating the patient and recommending rehab Severe anemia - Hb 6.9 today. Transfusing 1 unit of blood and repeat PRBC after. -Source of bleeding likely gluteal hematoma. GI was consulted given history of cirrhosis and esophageal varices and are not recommending endoscopy at this time Thrombocytopenia -likely secondary to cirrhosis and splenomegaly -Platelet count of 26. Transfuse 1 unit of platelets. Repeat CBC after Decompensated cirrhosis -Patient with very large peripheral edema bilaterally. CT abdomen showing cirrh osis of liver with portal hypertension -We will start Lasix 40 mg p.o. daily JOHANNA on CKD -resolved -Creatinine improved to 1.07 Constipation - continue home psyllium Left hepatic lobe cyst-outpatient monitoring Disposition: Awaiting improvement in platelet count and anemia. Patient will need to go to rehab after this
[2020-06-23] MEDS ORDERED: Furosemide 40 MG TAB PO SCH (16:45)
--- NOTE | 2020-06-23 18:09 | PRG ---
DATE OF SERVICE: SUBJECTIVE: Other than scrotum swelling, he feels a little better. He denies any headaches. No shortness of breath. No abdominal pain. Moderate pain in the right hip area. OBJECTIVE: VITAL SIGNS: His T-max 98.9, blood pressure 117/71, heart rate 96, respiratory rate 15, O2 saturation 100 on room air O2. GENERAL: Appears in no distress, oriented, looks better than when he initially came in. Swollen lower extremities as previously. Swollen scrotum. Has peripheral IV access. HEENT: Ocular movements conjugate. NECK: No jugular vein distention. LUNGS: Symmetric air entry. HEART: S1 and S2 regular rate. ABDOMEN: Distended with positive fluid wave. LABORATORY DATA: White cell count 13.7, hemoglobin 6.9, platelets 26,000, 16% bands. Vanc random was 9.1, so now vancomycin is at 750 mg b.i.d., restart it. Creatinine 1.09, which is marked improvement from admission. Abdomen and pelvis CT from June 22 with debridement region of the right hip, drainage catheter seen, absence of femoral head, irregular area of acetabulum, probably related to osteomyelitis, large hematoma right gluteal soft tissues adjacent to right hip, associated subcutaneous emphysema, cirrhotic morphology of liver, splenomegaly, Hurd catheter. 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 He has had resection of the hip and nothing was placed in the site due to concerns with the refractory infections. Unfortunately, he stopped his suppressive doxycycline and now has had recurrence of the osteomyelitis, so going to have to start all over again. He will need a PICC line long-term, probably 8 weeks of IV vancomycin and then after that transition to suppressive initially doxycycline, maybe rifampin added to it and then just doxy for an indefinite period of time. He will eventually need a PICC line inserted and disposition will probably be transferred to rehab or halfway unit. Job ID: [id number]
--- NOTE | 2020-06-23 19:17 | CON ---
DATE OF CONSULTATION: 06/23/2020 REQUESTING PHYSICIAN: Judy Serrano MD REASON FOR CONSULTATION: Cirrhosis and anemia. HISTORY OF PRESENT ILLNESS: Cristobal Batista is a 55-year-old man, who has previously seen my GI colleague, Dr. Lucien Gay. He has a diagnosis of alcohol-related cirrhosis. He has been abstinent from alcohol for at least the past 5 years. He has had issues with encephalopathy, ascites, and esophageal varices in the past. He underwent variceal band ligation in 2010. It looks like his last EGD was in 2013 with grade 2 varices and portal hypertensive gastropathy noted at that time. The patient had been on Lasix and spironolactone as well as nadolol in the past, though he states that he had not been taking any of those medications recently, continuing to do very well. He was admitted to the hospital 5 days ago with this MRSA sepsis from infected right hip hardware. On 06/20, he underwent irrigation and debridement. He has developed a large hematoma in the area and a drain is in place. Along with this, he had a marked hemoglobin decline from 9.5 on admission down to 4.7 the day after surgery. He is receiving his 5th unit of RBCs. Today, he has received FFP and platelets. Hemoglobin this morning was up to 6.9. Through all of this, he has not had any other overt bleeding from anywhere. There has been no hematemesis or abdominal pain or nausea. He has not had any bowel movements for the past couple of days. He has a mild tachycardia, but has otherwise been stable. He does report lower extremity edema, which is new over just the past few weeks. There is no confusion. He is on antibiotics. REVIEW OF SYSTEMS: Full review of systems including constitutional, head, eyes, ears, nose, throat, GI, , cardiovascular, respiratory, musculoskeletal, neurologic systems is negative except as noted in the HPI. PAST MEDICAL HISTORY: History of septic arthritis of the right hip due to MRSA, alcohol-related cirrhosis with portal hypertension, chronic thrombocytopenia, GERD, paroxysmal atrial fibrillation, esophageal variceal banding in 2010, portal hypertensive gastropathy, hepatic encephalopathy, ascites, alcohol abuse, quit drinking 5 years ago, bipolar disorder, and depression. ALLERGIES: NO KNOWN DRUG ALLERGIES. MEDICATIONS: 1. [place] p.r.n. 2. Vitamin B12. 3. Fentanyl p.r.n. 4. Ferrous sulfate 325 mg p.o. daily. 5. Folic acid 1 mg daily. 6. Morphine p.r.n. 7. Pantoprazole 40 mg daily. 8. Metamucil daily. 9. Thiamine 100 mg daily. 10. Vancomycin IV. SOCIAL HISTORY: Remote history of alcohol abuse, but quit 5 years ago. No current tobacco use. No drug use. FAMILY HISTORY: Noncontributory. PHYSICAL EXAMINATION: VITAL SIGNS: Temperature 97.9, pulse 108, blood pressure 126/80, and 91% oxygen saturation on room air. GENERAL: Pale, lying in bed comfortably, in no distress. SKIN: No jaundice. He has a large hematoma overlying the right hip with a drain in place. MENTAL: Alert and fully oriented. Pleasant, conversational. Can give a detailed coherent history. EYES: No scleral icterus. Extraocular movements intact. ENT: Mucous membranes moist. No oral lesions. LYMPH: No submandibular or supraclavicular lymphadenopathy. THYROID: Nontender to palpation. HEART: Regular tachycardia. LUNGS: Clear to auscultation bilaterally. ABDOMEN: Mild distention, tympanitic. Bowel sounds are hypoactive, but present. Soft and nontender to palpation throughout. EXTREMITIES: 2+ bilateral lower extremity edema. He has a large ecchymosis overlying the right hip with a drain in place, draining out serosanguineous fluid. NEUROLOGIC: Cranial nerves 2 through 12 intact bilaterally. No focal deficits. LABORATORY STUDIES: Hemoglobin 6.9, WBC 13.7, and platelets 26. INR is 1.8. Sodium 137, potassium 4.1, BUN 27, and creatinine 1.09. Iron 126, TIBC 108, 117% iron saturation. BNP elevated to 857.7. Ammonia only 56. CRP elevated to 22.6. Total bilirubin 2.4, alkaline phosphatase 132, AST 59, ALT 25, albumin 1.7. COVID PCR is negative. IMAGING STUDIES: CT of the abdomen and pelvis performed yesterday demonstrates absence of the right femoral head and irregularity of the acetabulum related to infection in this region with increased density related to hemorrhage or debris from infection. There is a large hematoma in the right gluteal soft tissues with associated subcutaneous emphysema. It measures 12.4 cm x 11.6 cm and up to 9.4 cm in transverse dimension. There is cirrhotic morphology of the liver with evidence of portal hypertension including splenic varices and splenorenal shunt and splenomegaly. ASSESSMENT AND PLAN: 1. Cirrhosis, recurrent decompensation in the context of methicillin-resistant Staphylococcus aureus bacteremia from right hip sepsis. 2. Methicillin-resistant Staphylococcus aureus sepsis of the right hip, status post irrigation and debridement 06/20. 3. Anemia of acute blood loss, secondary to large right hip hematoma following surgery. The patient has evidence of recurrent decompensation in the context of methicillin-resistant Staphylococcus aureus bacteremia. He has coagulopathy, total bilirubin elevation to 2.4. Thrombocytopenia with platelets only 26. He has mild ascites on CT imaging. This is in the context of having gone off diuretics and other cirrhosis-related medications in recent years. Hopefully, with treatment of this recurrent infection, his liver will re-compensate quickly. With regard to the acute anemia, this was in the context of his right hip irrigation and debridement and development of a large hematoma in the area. This is an adequate explanation for his anemia. This does not appear to represent any significant gastrointestinal bleeding, certainly not any overt bleeding such as variceal bleed. I would not put the patient through any upper endoscopy at this time. Continue to monitor H and H and transfuse as needed. Please call us back if there is any concern for overt gastrointestinal hemorrhage. 4. History of esophageal varices. He did have banding of varices back in 2010 and it appears his last EGD was in 2013, showing grade 2 varices and portal hypertensive gastropathy at that time. He is due for repeat surveillance EGD, but again I would not perform this in the acute setting right now. The patient had been on nadolol in the past, and as his blood pressure tolerates, I would recommend starting him back on nadolol, probably at a lower dose of 20 mg at bedtime. He can follow up with Dr. Gay in the outpatient setting for discussion of repeat EGD at some point. 5. Lower extremity edema. The patient had previously been on diuretics. Again, as hematoma resolves and blood pressure tolerates, he would probably benefit from going back on diuretics with Lasix 20 mg daily and spironolactone 50 mg daily to start. I also discussed with him the importance of sticking with a low-sodium diet. Thank you for the consultation. GI will back off, but please feel free to call anytime with questions or concerns. Job ID: [id number]
[2020-06-24] MEDS: Vancomycin HCl 750 MG in Sodium Chloride 0.9% 250 ML 250 ML IVPB SCH ×2 (00:25→12:36)
[2020-06-24] MEDS: Morphine 4 MG/ML VIAL SLOW IVP PRN (00:52)
[2020-06-24 04:37] LABS: Anion Gap 10 mmol/L (10-20); BUN (Urea Nitrogen) 21 mg/dL (8.4-25.7); Calc. Creatinine Clearance 128 mL/min (70-130); Calcium 8.2 mg/dL (7.8-10.44); Carbon Dioxide 31 mmol/L (22-29); Chloride 101 mmol/L (98-107); Estimated GFR-MDRD 90; Glucose 120 mg/dL (70-105); Potassium 4.3 mmol/L (3.5-5.1); Sodium 138 mmol/L (136-145)
[2020-06-24 05:18] LABS: Hemoglobin 7.7 g/dL (14.0-18.0); Mean Corpuscular HGB CONC 34.5 g/dL (32.0-36.0); Mean Corpuscular Hemoglobin 31.6 pg (27.0-31.0); Mean Corpuscular Volume 91.8 fL (78.0-98.0); Platelet Count 37 thou/uL (130-400); RBC Distribution Width 14.7 % (11.5-14.5); Red Blood Cell (RBC) Count 2.42 mill/uL (4.70-6.10); White Blood Cell (WBC) Count 13.9 thou/uL (4.8-10.8)
[2020-06-24 05:19] LABS: Band 23 % (5-11); Eosinophils 1 % (0-10); Lymphocytes 4 % (21-51); MDiff Complete? YES; Metamyelocyte 2 % (0-0); Monocytes 9 % (0-10); Myelocyte 2 % (0-0); Neutrophil 59 % (42-75); Platelet Morphology Comment Appears Decreased
--- NOTE | 2020-06-24 08:29 | PRG ---
DATE OF SERVICE: 06/23/2020 SUBJECTIVE: Cristobal is a 55-year-old male postop day 3 for irrigation, debridement, washout of the right hip girdle stone acetabulum. He is doing relatively well. He feels comfortable. He received a couple units of blood. He was quite anemic. The labs are about the same. He still has history of coagulopathy, but he is comfortable sitting in the intensive care unit and pleasant. OBJECTIVE: GENERAL: The patient is afebrile. He is alert, responsive, appropriate with examiner. Drain output has been 100 mL today. It started at 350, went to 250, now it is 100, still putting out serous hemorrhagic fluid. Incision is clean. There is no drainage noted at the incision as expected in his thigh, is quite large with a hematoma. IMPRESSION: 1. A 55-year-old male postop day 3 right hip girdle stone irrigation and debridement with MRSA. 2. Coagulopathy. 3. Chronic alcoholism. 4. Anemia. PLAN: At this point, I will continue to drain as we are little reluctant to take the patient back to the OR for continued instrumentation of this wound due to his coagulopathy. Therefore, I will leave it for day. We will pull the drain tomorrow and continue antibiotics. Job ID: [id number]
[2020-06-24] MEDS: Cyanocobalamin (Vitamin B-12) 1,000 MCG TAB PO SCH (08:50)
[2020-06-24] MEDS: Folic Acid 1 MG TAB PO SCH (08:50)
[2020-06-24] MEDS: Ferrous Sulfate 325 MG TAB PO SCH (08:50)
[2020-06-24] MEDS: Furosemide 40 MG TAB PO SCH (08:50)
[2020-06-24] MEDS: Thiamine 100 MG TAB PO SCH (08:50)
[2020-06-24] MEDS: HYDROcodone/Acetaminophen 5/325 mg Tablet PO PRN ×3 (08:51→19:58)
[2020-06-24] MEDS: Metamucil PACK PO SCH (08:51)
[2020-06-24] MEDS: Polyethylene Glycol 3350 17 GM Packet PO SCH (08:51)
--- NOTE | 2020-06-24 15:59 | PRG ---
DATE OF SERVICE: 06/24/2020 SUBJECTIVE: Mr. Batista looks a little better, still having moderate pain. The drain has not been pulled yet. OBJECTIVE: VITAL SIGNS: His temperature max 98.1, blood pressure 115/69, and O2 saturation 100%. GENERAL: There is no distress. He is eating without difficulty. LUNGS: Symmetric air entry with faint crackles at the bases. ABDOMEN: Distended with positive fluid wave. EXTREMITIES: He got massive edema in lower extremities, moderate to marked pain in the right hip. LABORATORY DATA: Creatinine 0.88. Platelet count is at 37,000. ASSESSMENT AND DISCUSSION: Alcoholism, liver cirrhosis, portal hypertension, recurring right hip infections secondary to methicillin-resistant Staphylococcus aureus, resection, and then antimicrobial therapy with improvement, suppressive doxycycline now with recurrence after discontinuation of suppressive Doxi, and the concern with osteomyelitis of the pelvis and femur, so go ahead and order an MRI to evaluate that. He will need a PICC line down the road. Job ID: [id number] MTDD
--- NOTE | 2020-06-24 16:54 | PDOC.HOSPP ---
- Subjective Encounter Date: 06/24/20 Encounter Time: 10:00 Subjective: F/u MRSA hip arthritis: The patient states his hip pain is tolerable. He did ambulate with physical therapy for the first-time to a commode. He does not recall getting up out of bed previously. Discussed that he may need rehab, the patient states he would prefer to stay in the hospital for two more days and get physical therapy here and hopefully he can go home after that. He reports bad experience with rehab. He is agreeable to PICC line today. He states in the past he administered IV antibiotics himself in his house and wants to do it at home The patient's drain fell out while working with physical therapy, per ortho no need to replace it Anemia: he denies abd pain, nausea, vomiting, diarrhea . No endoscopy recommended by GI - Objective Vital Signs & Weight: Vital Signs (12 hours) Temp Pulse Pulse BP BP Pulse Ox Pulse Ox 06/24/20 11:23 98.0 F 06/24/20 10:20 108 H 111 H 128/71 115/69 100 100 06/24/20 07:00 98.1 F Weight Weight 210 lb 1.608 oz Most Recent Monitor Data Heart Rate from ECG 107 NIBP 117/72 NIBP BP-Mean 87 Respiration from ECG 16 SpO2 96 I&O: 06/23/20 06/24/20 06/25/20 06:59 06:59 06:59 Intake Total 3000 840 Output Total 2300 2100 1600 Balance 700 -1260 -1600 Result Diagrams: 06/24/20 03:50 06/24/20 03:50 Hospitalist ROS - Review of Systems Constitutional: denies: fever, chills - Medication Medications: Active Medications Generic Name Dose Route Start Last Admin Trade Name Freq PRN Reason Stop Dose Admin Hydrocodone Bitart/Acetaminophen 1 tab 06/18/20 19:02 06/24/20 13:46 Hydrocodone/Acetaminophen 5/325 Mg Tablet PO 1 tab Q4H PRN Administration Moderate Pain (4-6) Cyanocobalamin 1,000 mcg 06/19/20 09:00 06/24/20 08:50 Cyanocobalamin (Vitamin B-12) 1,000 Mcg Tab PO 1,000 mcg DAILY DIANA Administration Fentanyl 25 mcg 06/21/20 19:34 06/22/20 17:10 Fentanyl 100 Mcg/2 Ml Vial SLOW IVP 25 mcg Q3H PRN Administration Severe Pain (7-10) Ferrous Sulfate 325 mg 06/19/20 08:00 06/24/20 08:50 Ferrous Sulfate 325 Mg Tab PO 325 mg QAM-WM DIANA Administration Folic Acid 1 mg 06/19/20 09:00 06/24/20 08:50 Folic Acid 1 Mg Tab PO 1 mg DAILY DIANA Administration Furosemide 40 mg 06/24/20 07:30 06/24/20 08:50 Furosemide 40 Mg Tab PO 40 mg DAILY-AC DIANA Administration Vancomycin HCl 750 mg/ Sodium 250 mls @ 250 mls/hr 06/23/20 12:00 06/24/20 12:36 Chloride IVPB 250 mls 1200,2359 DIANA Administration Morphine Sulfate 4 mg 06/21/20 19:29 06/24/20 00:52 Morphine 4 Mg/Ml Vial SLOW IVP 4 mg Q4H PRN Administration Moderate to Severe Pain (6-10) Pantoprazole Sodium 40 mg 06/19/20 09:00 06/24/20 08:50 Pantoprazole 40 Mg Tab PO 40 mg DAILY DIANA Administration Polyethylene Glycol 17 gm 06/22/20 21:10 06/24/20 08:51 Polyethylene Glycol 3350 17 Gm Packet PO 17 gm DAILY DIANA Administration Psyllium Hydrophilic Mucilloid 1 pk 06/22/20 09:00 06/24/20 08:51 Metamucil Pack PO Not Given DAILY DIANA Sodium Chloride 10 ml 06/20/20 21:00 06/24/20 08:51 Flush - Normal Saline 10 Ml Syringe IVF 10 ml Q12HR DIANA Administration Thiamine HCl 100 mg 06/19/20 09:00 06/24/20 08:50 Thiamine 100 Mg Tab PO 100 mg DAILY DIANA Administration - Exam General Appearance: NAD, awake alert Eye: PERRL, anicteric sclera ENT: normocephalic atraumatic, no oropharyngeal lesions Neck: no JVD Heart: RRR, no murmur, no gallops, no rubs Respiratory: CTAB, no rales, no ronchi Extremities: no clubbing Extremities - other findings: right hip pain with less warmth, still has swelling and tenderness Skin: normal turgor, no lesions, no rashes Neurological: cranial nerve grossly intact, normal sensation to touch, no weakness Hosp A/P - Plan Chest Xray 06/20: normal Hip X ray : presumed infection in the right hip CT abdomen pelvis: Large hematoma right gluteal soft tissues adjacent to the right hip with associated subcutaneous emphysema. Cirrhosis of the liver with portal hypertension with very large splenic varices and splenorenal shunt. Increased density in the region of the acetabulum which could be related to hemorrhage or debris. Left hepatic lobe cyst. Colonic diverticulosis. This is a 55 year old male admitted for MRSA infection right hip, s/p right hip irrigation and debridement MRSA infection right hip s/p irrigation and debridement POD 4 - was started on IV vancomycin and zosyn. He is s/p Irrigation and debridement 06/20 . Zosyn was discontinued 06/22 - PICC line to be placed today. Dr. Swan is following and ordered MRI of the right hip - will need 8 weeks of IV vancomycin , then doxycycline plus or minus rifampin Large right gluteal hematoma of the right hip -Hemoglobin 7.7 today. No further transfusions. Hip drain was removed today - continue with PT Severe anemia - Hb 7.7 today. He has received 5 units of platelets -Source of bleeding likely gluteal hematoma. GI was consulted given history of cirrhosis and esophageal varices and are not recommending endoscopy at this time Thrombocytopenia -likely secondary to cirrhosis and splenomegaly -Platelet count of 37. The patient was transfused 2 units of platelets 06/23. Decompensated cirrhosis -Patient with very large peripheral edema bilaterally. CT abdomen showing cirrhosis of liver with portal hypertension -continue lasix 40 mg daily JOHANNA on CKD -resolved -Creatinine improved to 0.88 Constipation - continue home psyllium Left hepatic lobe cyst-outpatient monitoring Disposition: Awaiting improvement in platelet count and anemia. Patient will need to go to rehab after this
[2020-06-24 23:54] LABS: Vancomycin, Trough 13.9 ug/mL
[2020-06-25] MEDS: Vancomycin HCl 750 MG in Sodium Chloride 0.9% 250 ML 250 ML IVPB SCH ×2 (00:32→11:48)
[2020-06-25] MEDS: HYDROcodone/Acetaminophen 5/325 mg Tablet PO PRN ×2 (00:35→04:56)
[2020-06-25 05:56] LABS: Hemoglobin 7.6 g/dL (14.0-18.0); Mean Corpuscular HGB CONC 34.5 g/dL (32.0-36.0); Mean Corpuscular Hemoglobin 31.9 pg (27.0-31.0); Mean Corpuscular Volume 92.3 fL (78.0-98.0); Mean Platelet Volume 11.7 fL (7.4-10.4); Platelet Count 39 thou/uL (130-400); RBC Distribution Width 14.7 % (11.5-14.5); Red Blood Cell (RBC) Count 2.39 mill/uL (4.70-6.10); White Blood Cell (WBC) Count 11.7 thou/uL (4.8-10.8)
[2020-06-25 05:58] LABS: Anion Gap 10 mmol/L (10-20); BUN (Urea Nitrogen) 18 mg/dL (8.4-25.7); Calc. Creatinine Clearance 137 mL/min (70-130); Calcium 8.1 mg/dL (7.8-10.44); Carbon Dioxide 29 mmol/L (22-29); Chloride 102 mmol/L (98-107); Estimated GFR-MDRD Greater than 90; Glucose 128 mg/dL (70-105); Potassium 4.1 mmol/L (3.5-5.1); Sodium 137 mmol/L (136-145)
[2020-06-25 06:28] LABS: Band 24 % (5-11); Eosinophils 1 % (0-10); Lymphocytes 4 % (21-51); MDiff Complete? YES; Metamyelocyte 1 % (0-0); Monocytes 7 % (0-10); Myelocyte 3 % (0-0); Neutrophil 60 % (42-75); Nucleated RBC 1 % (0); Platelet Morphology Comment Appears Decreased
[2020-06-25] MEDS: Furosemide 40 MG TAB PO SCH (07:35)
[2020-06-25] MEDS: Cyanocobalamin (Vitamin B-12) 1,000 MCG TAB PO SCH (07:35)
[2020-06-25] MEDS: Ferrous Sulfate 325 MG TAB PO SCH (07:35)
[2020-06-25] MEDS: Thiamine 100 MG TAB PO SCH (07:35)
[2020-06-25] MEDS: Folic Acid 1 MG TAB PO SCH (07:35)
[2020-06-25] MEDS: Polyethylene Glycol 3350 17 GM Packet PO SCH (07:36)
[2020-06-25] MEDS: Morphine 4 MG/ML VIAL SLOW IVP PRN ×3 (07:36→15:42)
[2020-06-25] MEDS: Metamucil PACK PO SCH (07:36)
[2020-06-25] MEDS ORDERED: Magnevist 469MG/ML 20 ML VIAL ONE (09:49)
--- NOTE | 2020-06-25 09:52 | SPC ---
Ultrasound guided left upper extremity PICC placement HISTORY: Right hip infection. Patient needs long-term IV antibiotics. FINDINGS: Informed consent obtained prior to the procedure. An appropriate access site was determined with ultrasound guidance. The area was then meticulously pr epped and draped in usual sterile fashion. Brachial veins are visualized. Skin overlying the more medial left brachial vein anesthetized with 1% buffered lidocaine. Utilizing direct sonographic guidance, vascular access is obtained via the left basilic vein, and an 0.018in guidewire was advanced to the distal SVC. Intravascular length is c alculated at 40.5 cm, and the PICC is cut accordingly. Needle is removed and replaced with a peel-away sheath. The PICC was advanced over the wire. Wire and peel-away sheath were removed. The tip of the catheter overlies the distal SVC. The catheter was accessed and aspirated/flushed easily. FINDINGS: Technically successful placement of a 40.5 centimeter single lumen 5 [place] left upper extremity PICC line. IMPRESSION: Successful ultrasound guided placement of a left upper extremity PICC.
--- NOTE | 2020-06-25 15:34 | MRI ---
MRI OF THE PELVIS WITH AND WITHOUT CONTRAST: 06/25/20 INDICATION: History of chronic right hip pain and open wound of the right hip. TECHNIQUE: Multiplanar and multisequence MR images were obtained of the pelvis with and without IV contrast util izing 20 mL of Multihance. Comparisons are made with CT of the abdomen and pelvis without contrast dated 06/22/20 and right hip radiograph dated 06/18/20. FINDINGS: As seen on comparison examination, patient has undergone arthroplasty of the proximal right femur. Th ere is exuberant periosteal reaction surrounding the proximal right greater trochanter and lesser tro chanteric region as well as the femoral neck resection site. There is an abnormal peripherally enhanc ing fluid collection seen within the subcutaneous tissues overlying the lateral aspect of the right h ip measuring 13.2 x 10.0 x 16.5 cm consistent with an abscess. This communicates with the right hip j oint through a fistula best seen on coronal post contrast image 16 of series 10. There is abnormal en hancement signal involving the resection site of the right proximal femur as well as acetabular cup c onsistent with changes of osteomyelitis. There is a Hurd catheter in a decompressed bladder. There i s scattered diverticula involving the colon. There is diffuse muscular atrophy. There is diffuse red marrow hyperplasia of the visualized osseous structures. There are venous varicosities seen involvin g the lower midline abdomen. There is mild free fluid within the abdomen and pelvis. There is diffuse anasarca. IMPRESSION: 1. Septic arthritis with a large right periarticular subcutaneous abscess. There is osteomyeliti s of the right acetabulum and proximal right femur. 2. Myositis of the lateral right gluteus steve muscle. 3. Diffuse anasarca. 4. Mild free fluid in the abdomen and pelvis. Prominent anasarca. 5. Nonspecific prominent varicosities within the lower abdomen and pelvis. POS: AH
--- NOTE | 2020-06-25 16:47 | PDOC.HOSPP ---
- Subjective Encounter Date: 06/25/20 Encounter Time: 10:00 Subjective: The patient continues to have difficulty walking and has moderate to severe pain in right hip. He got PICC line yesterday . MRI pending He is agreeable to go to rehab when he leaves the hospital, mostly because he wants to be fed which he wouldn't do if he were to go home. He is interested in [facility] - Objective Vital Signs & Weight: Vital Signs (12 hours) Temp Pulse Ox 06/25/20 11:27 98.2 F 06/25/20 08:00 99 06/25/20 07:56 98.5 F Weight Weight 210 lb 1.608 oz Most Recent Monitor Data Heart Rate from ECG 121 NIBP 137/96 NIBP BP-Mean 109 Respiration from ECG 29 SpO2 95 I&O: 06/24/20 06/25/20 06/26/20 06:59 06:59 06:59 Intake Total 840 Output Total 2100 2600 Balance -1260 -2600 Result Diagrams: 06/25/20 05:30 06/25/20 05:30 Hospitalist ROS - Review of Systems Constitutional: denies: fever, chills - Medication Medications: Active Medications Generic Name Dose Route Start Last Admin Trade Name Freq PRN Reason Stop Dose Admin Hydrocodone Bitart/Acetaminophen 1 tab 06/18/20 19:02 06/25/20 04:56 Hydrocodone/Acetaminophen 5/325 Mg Tablet PO 1 tab Q4H PRN Administration Moderate Pain (4-6) Cyanocobalamin 1,000 mcg 06/19/20 09:00 06/25/20 07:35 Cyanocobalamin (Vitamin B-12) 1,000 Mcg Tab PO 1,000 mcg DAILY DIANA Administration Fentanyl 25 mcg 06/21/20 19:34 06/22/20 17:10 Fentanyl 100 Mcg/2 Ml Vial SLOW IVP 25 mcg Q3H PRN Administration Severe Pain (7-10) Ferrous Sulfate 325 mg 06/19/20 08:00 06/25/20 07:35 Ferrous Sulfate 325 Mg Tab PO 325 mg QAM-WM DIANA Administration Folic Acid 1 mg 06/19/20 09:00 06/25/20 07:35 Folic Acid 1 Mg Tab PO 1 mg DAILY DIANA Administration Furosemide 40 mg 06/24/20 07:30 06/25/20 07:35 Furosemide 40 Mg Tab PO 40 mg DAILY-AC DIANA Administration Vancomycin HCl 750 mg/ Sodium 250 mls @ 250 mls/hr 06/23/20 12:00 06/25/20 11:48 Chloride IVPB 250 mls 1200,2359 DIANA Administration Morphine Sulfate 4 mg 06/21/20 19:29 06/25/20 15:42 Morphine 4 Mg/Ml Vial SLOW IVP 4 mg Q4H PRN Administration Moderate to Severe Pain (6-10) Pantoprazole Sodium 40 mg 06/19/20 09:00 06/25/20 07:35 Pantoprazole 40 Mg Tab PO 40 mg DAILY DIANA Administration Polyethylene Glycol 17 gm 06/22/20 21:10 06/25/20 07:36 Polyethylene Glycol 3350 17 Gm Packet PO Not Given DAILY DIANA Psyllium Hydrophilic Mucilloid 1 pk 06/22/20 09:00 06/25/20 07:36 Metamucil Pack PO 1 pk DAILY DIANA Administration Sodium Chloride 10 ml 06/20/20 21:00 06/25/20 07:36 Flush - Normal Saline 10 Ml Syringe IVF 10 ml Q12HR DIANA Administration Sodium Chloride 10 ml 06/20/20 11:30 06/25/20 00:33 Flush - Normal Saline 10 Ml Syringe IVF 10 ml PRN PRN Administration Saline Flush Thiamine HCl 100 mg 06/19/20 09:00 06/25/20 07:35 Thiamine 100 Mg Tab PO 100 mg DAILY DIANA Administration - Exam General Appearance: NAD, awake alert Eye: PERRL, anicteric sclera ENT: normocephalic atraumatic, no oropharyngeal lesions Neck: no JVD Heart: RRR Respiratory: CTAB, no wheezes Gastrointestinal: soft, non-tender, non-distended, normal bowel sounds Extremities: 2+ LE edema Extremities - other findings: improvement in right hip wound. No purulent drain age noted. Skin: no rashes Neurological: cranial nerve grossly intact, normal sensation to touch, no weakness Hosp A/P - Plan Chest Xray 06/20: normal Hip X ray : presumed infection in the right hip CT abdomen pelvis: Large hematoma right gluteal soft tissues adjacent to the right hip with associated subcutaneous emphysema. Cirrhosis of the liver with portal hypertension with very large splenic varices and splenorenal shunt. Increased density in the region of the acetabulum which could be related to hemorrhage or debris. Left hepatic lobe cyst. Colonic diverticulosis. MRI right hip: septic arthritis with large periarticular Cheyney's abscess. There is osteomyelitis of the right acetabulum and proximal right femur. Myositis of the lateral right gluteus steve muscle. Diffuse anasarca. This is a 55 year old male admitted for MRSA infection right hip, s/p right hip irrigation and debridement MRSA infection right hip s/p irrigation and debridement POD 4 - was started on IV vancomycin and zosyn. He is s/p Irrigation and debridement 06/20 . Zosyn was discontinued 06/22 -MRI of the right hip today shows osteomyelitis of the right acetabulum and proximal right femur. There is also concern for an abscess. I have discussed this with Dr. Bob and Dr. Swan. Appreciate their recommendations - he will need IV vancomycin for 8 weeks Large right gluteal hematoma of the right hip -Hemoglobin 7.6 today. No further transfusions. Hip drain was removed today - continue with PT Severe anemia - Hb 7.6 today. He has received 5 units of PRBC . -Source of bleeding likely gluteal hematoma. GI was consulted given history of cirrhosis and esophageal varices and are not recommending endoscopy at this time Thrombocytopenia -likely secondary to cirrhosis and splenomegaly -Platelet count of 39. The patient was transfused 2 units of platelets 06/23. Decompensated cirrhosis -Patient with very large peripheral edema bilaterally. CT abdomen showing cirrhosis of liver with portal hypertension -continue lasix 40 mg daily JOHANNA on CKD -resolved -Creatinine improved to 0.82 Constipation - continue home psyllium Left hepatic lobe cyst-outpatient monitoring Disposition: Pending recommendations from surgery regarding MRI findings. Will need to go to rehab after
[2020-06-26] MEDS: Vancomycin HCl 750 MG in Sodium Chloride 0.9% 250 ML 250 ML IVPB SCH ×2 (00:48→14:19)
[2020-06-26] MEDS: HYDROcodone/Acetaminophen 5/325 mg Tablet PO PRN ×2 (05:51)
[2020-06-26 06:06] LABS: Anion Gap 10 mmol/L (10-20); BUN (Urea Nitrogen) 17 mg/dL (8.4-25.7); Calc. Creatinine Clearance 146 mL/min (70-130); Calcium 8.4 mg/dL (7.8-10.44); Carbon Dioxide 27 mmol/L (22-29); Chloride 104 mmol/L (98-107); Estimated GFR-MDRD Greater than 90; Glucose 143 mg/dL (70-105); Sodium 137 mmol/L (136-145)
[2020-06-26 07:22] LABS: Anisocytosis SLIGHT = 6-15 cells (100X) (0-5/hpf); Band 13 % (5-11); Eosinophils 3 % (0-10); Hemoglobin 7.3 g/dL (14.0-18.0); Large Platelets SLIGHT; Lymphocytes 6 % (21-51); MDiff Complete? YES; Mean Corpuscular Volume 94.3 fL (78.0-98.0); Mean Platelet Volume 11.1 fL (7.4-10.4); Metamyelocyte 3 % (0-0); Monocytes 8 % (0-10); Myelocyte 1 % (0-0); Neutrophil 66 % (42-75); Platelet Count 38 thou/uL (130-400); Platelet Morphology Comment Appears Decreased; Polychromasia SLIGHT = 2-3 cells (100X) (0-2/hpf); RBC Distribution Width 16.2 % (11.5-14.5); Red Blood Cell (RBC) Count 2.28 mill/uL (4.70-6.10); White Blood Cell (WBC) Count 7.7 thou/uL (4.8-10.8)
[2020-06-26] MEDS: Metamucil PACK PO SCH (07:28)
[2020-06-26] MEDS: Cyanocobalamin (Vitamin B-12) 1,000 MCG TAB PO SCH (07:28)
[2020-06-26] MEDS: Folic Acid 1 MG TAB PO SCH (07:29)
[2020-06-26] MEDS: Morphine 4 MG/ML VIAL SLOW IVP PRN ×4 (07:29→21:18)
[2020-06-26] MEDS: Thiamine 100 MG TAB PO SCH (07:29)
[2020-06-26] MEDS: Furosemide 40 MG TAB PO SCH (07:29)
[2020-06-26] MEDS: Ferrous Sulfate 325 MG TAB PO SCH (07:29)
[2020-06-26] MEDS: Polyethylene Glycol 3350 17 GM Packet PO SCH (07:31)
[2020-06-26 12:53] VITALS: BMI 31.9
--- NOTE | 2020-06-26 17:09 | PDOC.HOSPP ---
- Subjective Encounter Date: 06/26/20 Encounter Time: 10:00 Subjective: The patient states that his pain is still severe. He believes fentanyl does not control it long enough. Lynden doesn't help that much. Wants to consider switching to a different medicine. - Objective Vital Signs & Weight: Vital Signs (12 hours) Temp Pulse Resp BP Pulse Ox 06/26/20 16:23 99.3 F 111 H 16 122/70 100 06/26/20 15:36 98 06/26/20 12:49 99.9 F H 108 H 18 116/66 98 06/26/20 08:00 99 06/26/20 07:54 98.7 F Weight Admit Weight 210 lb 1.608 oz Weight 272 lb Most Recent Monitor Data Heart Rate from ECG 113 NIBP 123/64 NIBP BP-Mean 83 Respiration from ECG 19 SpO2 98 I&O: 06/25/20 06/26/20 06/27/20 06:59 06:59 06:59 Intake Total 750 Output Total 2600 3950 2150 Balance -2600 -3200 -2150 Result Diagrams: 06/26/20 05:30 06/26/20 05:30 Hospitalist ROS - Review of Systems Constitutional: denies: fever, chills - Medication Medications: Active Medications Generic Name Dose Route Start Last Admin Trade Name Freq PRN Reason Stop Dose Admin Hydrocodone Bitart/Acetaminophen 1 tab 06/18/20 19:02 06/26/20 05:51 Hydrocodone/Acetaminophen 5/325 Mg Tablet PO 1 tab Q4H PRN Administration Moderate Pain (4-6) Cyanocobalamin 1,000 mcg 06/19/20 09:00 06/26/20 07:28 Cyanocobalamin (Vitamin B-12) 1,000 Mcg Tab PO 1,000 mcg DAILY DIANA Administration Fentanyl 25 mcg 06/21/20 19:34 06/22/20 17:10 Fentanyl 100 Mcg/2 Ml Vial SLOW IVP 25 mcg Q3H PRN Administration Severe Pain (7-10) Ferrous Sulfate 325 mg 06/19/20 08:00 06/26/20 07:29 Ferrous Sulfate 325 Mg Tab PO 325 mg QAM-WM DIANA Administration Folic Acid 1 mg 06/19/20 09:00 06/26/20 07:29 Folic Acid 1 Mg Tab PO 1 mg DAILY DIANA Administration Furosemide 40 mg 06/24/20 07:30 06/26/20 07:29 Furosemide 40 Mg Tab PO 40 mg DAILY-AC DIANA Administration Vancomycin HCl 750 mg/ Sodium 250 mls @ 250 mls/hr 06/23/20 12:00 06/26/20 14:19 Chloride IVPB 250 mls 1200,2359 DIANA Administration Morphine Sulfate 4 mg 06/21/20 19:29 06/26/20 15:37 Morphine 4 Mg/Ml Vial SLOW IVP 4 mg Q4H PRN Administration Moderate to Severe Pain (6-10) Pantoprazole Sodium 40 mg 06/19/20 09:00 06/26/20 07:29 Pantoprazole 40 Mg Tab PO 40 mg DAILY DIANA Administration Polyethylene Glycol 17 gm 06/22/20 21:10 06/26/20 07:31 Polyethylene Glycol 3350 17 Gm Packet PO Not Given DAILY DIANA Psyllium Hydrophilic Mucilloid 1 pk 06/22/20 09:00 06/26/20 07:28 Metamucil Pack PO 1 pk DAILY DIANA Administration Sodium Chloride 10 ml 06/20/20 21:00 06/26/20 07:31 Flush - Normal Saline 10 Ml Syringe IVF 10 ml Q12HR DIANA Administration Sodium Chloride 10 ml 06/20/20 11:30 06/25/20 00:33 Flush - Normal Saline 10 Ml Syringe IVF 10 ml PRN PRN Administration Saline Flush Thiamine HCl 100 mg 06/19/20 09:00 06/26/20 07:29 Thiamine 100 Mg Tab PO 100 mg DAILY DIANA Administration - Exam General Appearance: NAD, awake alert ENT: normocephalic atraumatic, no oropharyngeal lesions Neck: no JVD Heart: RRR Respiratory: CTAB Gastrointestinal: soft, non-tender, non-distended Extremities: 2+ LE edema Extremities - other findings: right hip tendeness/swelling and warmth. Neurological: cranial nerve grossly intact, normal sensation to touch, no focal deficits, no new deficit Musculoskeletal - other findings: difficulty lifting right leg compared to left Hosp A/P - Plan Chest Xray 06/20: normal Hip X ray : presumed infection in the right hip CT abdomen pelvis: Large hematoma right gluteal soft tissues adjacent to the right hip with associated subcutaneous emphysema. Cirrhosis of the liver with portal hypertension with very large splenic varices and splenorenal shunt. Increased density in the region of the acetabulum which could be related to hemorrhage or debris. Left hepatic lobe cyst. Colonic diverticulosis. MRI right hip: septic arthritis with large periarticular Cheyney's abscess. There is osteomyelitis of the right acetabulum and proximal right femur. Myositis of the lateral right gluteus steve muscle. Diffuse anasarca. This is a 55 year old male admitted for MRSA infection right hip, s/p right hip irrigation and debridement MRSA infection right hip s/p irrigation and debridement POD 4 - was started on IV vancomycin and zosyn. He is s/p Irrigation and debridement 06/20 . Zosyn was discontinued 06/22 -MRI of the right hip 06/26 shows osteomyelitis of the right acetabulum and proximal right femur as well as abscess. Per Dr. Bob, no surgical care needed, believes this is most likely hematoma - he will need IV vancomycin for 8 weeks Large right gluteal hematoma of the right hip -Hemoglobin 7.3 today. Will monitor for need for additional transfusion - continue conservative care Severe anemia - Hb 7.3 today. He has received 5 units of PRBC this admission -Source of bleeding likely gluteal hematoma. GI was consulted given history of cirrhosis and esophageal varices and are not recommending endoscopy at this time - will repeat CBC tomorrow and evaluate for transfusion Thrombocytopenia -likely secondary to cirrhosis and splenomegaly -Platelet count of 39, stable. The patient was transfused 2 units of platelets 06/23. Decompensated cirrhosis -Patient with very large peripheral edema bilaterally. CT abdomen showing cirrhosis of liver with portal hypertension -continue lasix 40 mg daily JOHANNA on CKD -resolved -Creatinine improved to 0.77 Constipation - continue home psyllium Left hepatic lobe cyst-outpatient monitoring Disposition: Pending recommendations from surgery regarding MRI findings. Will need to go to rehab after
[2020-06-26] MEDS: oxyCODONE/Acetaminophen 5 mg/325 mg Tablet PO PRN (17:57)
[2020-06-27] MEDS: Vancomycin HCl 750 MG in Sodium Chloride 0.9% 250 ML 250 ML IVPB SCH ×2 (00:33→12:54)
[2020-06-27] MEDS: oxyCODONE/Acetaminophen 5 mg/325 mg Tablet PO PRN (00:34)
[2020-06-27] MEDS: Morphine 4 MG/ML VIAL SLOW IVP PRN ×3 (02:28→12:57)
[2020-06-27 06:36] LABS: Band 14 % (5-11); Eosinophils 1 % (0-10); Hemoglobin 7.6 g/dL (14.0-18.0); Hypochromia SLIGHT = 6-15 cells (100X) (0-5/hpf); Lymphocytes 13 % (21-51); MDiff Complete? YES; Mean Corpuscular HGB CONC 34.1 g/dL (32.0-36.0); Mean Corpuscular Hemoglobin 32.5 pg (27.0-31.0); Mean Corpuscular Volume 95.2 fL (78.0-98.0); Mean Platelet Volume 11.3 fL (7.4-10.4); Metamyelocyte 1 % (0-0); Monocytes 7 % (0-10); Neutrophil 64 % (42-75); Platelet Count 51 thou/uL (130-400); Platelet Morphology Comment Appears Decreased; RBC Distribution Width 17.6 % (11.5-14.5); Red Blood Cell (RBC) Count 2.33 mill/uL (4.70-6.10); White Blood Cell (WBC) Count 7.2 thou/uL (4.8-10.8)
[2020-06-27 06:43] LABS: Anion Gap 12 mmol/L (10-20); BUN (Urea Nitrogen) 16 mg/dL (8.4-25.7); Calc. Creatinine Clearance 192 mL/min (70-130); Calcium 8.3 mg/dL (7.8-10.44); Carbon Dioxide 24 mmol/L (22-29); Chloride 104 mmol/L (98-107); Estimated GFR-MDRD Greater than 90; Glucose 134 mg/dL (70-105); Sodium 136 mmol/L (136-145)
[2020-06-27] MEDS: Thiamine 100 MG TAB PO SCH (08:29)
[2020-06-27] MEDS: Furosemide 40 MG TAB PO SCH (08:29)
[2020-06-27] MEDS: Ferrous Sulfate 325 MG TAB PO SCH (08:30)
[2020-06-27] MEDS: Cyanocobalamin (Vitamin B-12) 1,000 MCG TAB PO SCH (08:30)
[2020-06-27] MEDS: Folic Acid 1 MG TAB PO SCH (08:30)
[2020-06-27] MEDS: Polyethylene Glycol 3350 17 GM Packet PO SCH (08:31)
[2020-06-27 11:32] LABS: Vancomycin, Trough 11.6 ug/mL
[2020-06-27] MEDS: Metamucil PACK PO SCH (11:41)
[2020-06-27 13:12] LABS: Free T4 (Free Thyroxine) 0.99 ng/dL (0.70-1.48)
[2020-06-27 13:27] LABS: Thyroid Stimulating Hormone 3.2186 uIU/mL (0.35-4.94)
[2020-06-27 13:49] LABS: Vitamin B12 Greater than 2000 pg/mL (211-911)
[2020-06-27 15:05] VITALS: BP 128/78; TEMP 98.4
--- NOTE | 2020-06-27 18:21 | PDOC.DS.DS ---
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 In the ER large amount of pus was expressed from his wound. Orthopedics was consulted and the patient was admitted given vancomycin and Zosyn and admitted for further work-up HOSPITAL COURSE: Sepsis secondary to MRSA infection right hip with osteomyelitis and MRSA bacteremia: Patient was started on IV vancomycin and Zosyn. He underwent irrigation and debridement of his right hip on 06/20. Blood cultures were positive for MRSA. Hip cultures were also positive for MRSA. Echo showed no vegetation but cannot rule it out. This is less likely given that the patient was not spiking recurrent fevers and had no murmur. Infectious disease was consulted. The patient was transitioned to IV vancomycin monotherapy on 06/22. MRI of his right hip 06/26 showed osteomyelitis of the right acetabulum and proximal right femur as well as an abscess. I discussed this with orthopedics and Dr. Swan who thought this is most likely hematoma related. He will continue with IV antibiotics for 8 weeks. After that she should be on suppressive doxycycline indefinitely. Patient was seen by physical therapy and Occupational Therapy and is recommended that he get inpatient rehab. He was discharged on gabapentin 100 g 3 times daily for pain, and oxycodone 5 mg p.o. every 4 hours as needed for pain. [place] [employer] was checked and no recent narcotic prescriptions are found. Patient denied taking tramadol or oxycodone which was listed on his home med list. Large right gluteal hematoma of the right hip: Patient had a low hemoglobin 4.8 on 06/21. Had severe right-sided hip pain. CT scan of his abdomen and pelvis was done which showed a large right gluteal hematoma. No surgical intervention was recommended. Patient's hemoglobin improved to 7.3 at the time of discharge. He will continue with physical therapy. Severe anemia: Patient had hemoglobin of 4.8 on 06/21. He received 5 units of PRBCs. To slow improvement in his blood counts GI was consulted given his history of cirrhosis and esophageal varices. He is due for repeat endoscopy but due to his concurrent infection, they are not recommending an endoscopy at this time but consider repeating one as an outpatient. Iron studies are unremarkable. B12, folate and TSH were normal. He was discharged with iron supplementation. Thrombocytopenia -patient had a platelet count dropped to 26 on 06/23. He was transfused platelets given his large hematoma and his platelet count improved to 51. Decompensated cirrhosis: patient was resumed on his oral lasix 40 mg due to his decompensated cirrhosis. His spironolactone dose was reduced to 25 mg and nadolol reduced to 20 mg on discharge due to soft blood pressures. JOHANNA on CKD -resolved after resuming diuretics. Constipation: continue home psyllium Left hepatic lobe cyst-outpatient monitoring Pertinent Studies: Chest Xray 06/20: normal Hip X ray : presumed infection in the right hip CT abdomen pelvis: Large hematoma right gluteal soft tissues adjacent to the right hip with associated subcutaneous emphysema. Cirrhosis of the liver with portal hypertension with very large splenic varices and splenorenal shunt. Increased density in the region of the acetabulum which could be related to hemorrhage or debris. Left hepatic lobe cyst. Colonic diverticulosis. MRI right hip: septic arthritis with large periarticular Cheyney's abscess. There is osteomyelitis of the right acetabulum and proximal right femur. Myositis of the lateral right gluteus steve muscle. Diffuse anasarca. This is a 55 year old male admitted for MRSA infection right hip, s/p right hip irrigation and debridement Procedures: Irrigation and debridement of the right hip 06/20 Resuscitation Status: 06/18/20 17:36 Resuscitation Status Routine Resuscitation Status: FULL: Full Resuscitation - Labs Lab Results: 06/27/20 05:34 06/27/20 05:34 Abnormal Lab Results - Last 48 hrs 06/26/20 05:30: RBC 2.28 L, Hgb 7.3 L, Hct 21.5 L, MCH 32.0 H, RDW 16.2 H, Plt Count 38 L, MPV 11.1 H, Band Neuts % (Manual) 13 H, Lymphocytes % (Manual) 6 L, Metamyelocytes % (Man) 3 H, Myelocytes % 1 H, Plt Morphology Comment Appears Decreased L 06/27/20 05:34: RBC 2.33 L, Hgb 7.6 L, Hct 22.1 L, MCH 32.5 H, RDW 17.6 H, Plt Count 51 L, MPV 11.3 H, Band Neuts % (Manual) 14 H, Lymphocytes % (Manual) 13 L, Metamyelocytes % (Man) 1 H, Plt Morphology Comment Appears Decreased L 06/27/20 12:18: Vitamin B12 Greater than 2000 H Microbiology - Entire Visit 06/20/20 10:00 Hip - Swab Bacterial Culture - Final Methicillin resistant S.aureus 06/20/20 10:00 Hip - Swab Anaerobic Culture - Final 06/20/20 10:00 Hip - Swab Bacterial Culture - Final Methicillin resistant S.aureus 06/20/20 10:00 Hip - Swab Anaerobic Culture - Final 06/18/20 15:19 Venous blood - Right Arm Blood Culture - Final Methicillin resistant S.aureus 06/18/20 15:19 Venous blood - Left Hand Blood Culture - Final Staphylococcus aureus 06/18/20 16:10 Hip - Pending Bacterial Culture - Final Methicillin resistant S.aureus - Physical Exam Vitals: Vital Signs (12 hours) Temp Pulse Resp BP Pulse Ox 06/27/20 15:04 98.4 F 103 H 18 128/78 100 06/27/20 11:12 99.1 F 104 H 18 145/74 H 100 06/27/20 08:30 99 06/27/20 07:40 98.2 F 102 H 18 124/75 99 Weight Admit Weight 210 lb 1.608 oz Weight 272 lb Most Recent Monitor Data Heart Rate from ECG 113 NIBP 123/64 NIBP BP-Mean 83 Respiration from ECG 19 SpO2 98 Physical Exam: The patient was seen and examined on the day of discharge. Problem - Discharge Plan Plan of Treatment: Follow-up with your primary care doctor in a week. Follow-up with Dr. Swan for your osteomyelitis and with Dr. Bob from orthopedics. Your nadolol and spironolactone doses were reduced. Please consider following up with GI for additional dose titration. Consider repeat endoscopy 1 year acute infection has resolved to check on the status of your varices. - Time spent with Patient (mins): 35 Plan - Discharge Medications Prescriptions: Gabapentin 100 mg PO TID #90 capsule Furosemide [Lasix] 40 mg PO DAILY-AC #30 tab Nadolol 20 mg PO DAILY #30 tablet Spironolactone 50 mg PO DAILY #30 tablet Home Medications: Medication Instructions Recorded Confirmed Type Cyanocobalamin (Vitamin B-12) 1,000 mcg PO DAILY #30 tab 04/22/17 Rx [Vitamin B-12] Docusate [Colace] 100 mg PO BID #60 cap 04/22/17 Rx Ferrous Sulfate [Feosol] 325 mg PO QAM-WM #30 tab 04/22/17 Rx Folic Acid [Folvite] 1 mg PO DAILY #30 tab 04/22/17 Rx Furosemide [Lasix] 40 mg PO DAILY-AC #30 tab 04/22/17 Rx Lactulose 20 gm PO DAILYPRN PRN #30 udcup 04/22/17 Rx OxyCODONE IR [oxyCODONE HCl] 5 - 10 mg PO Q4HR PRN 04/22/17 04/22/17 History Pantoprazole [Protonix] 40 mg PO DAILY #30 tab 04/22/17 Rx Polyethylene Glycol 3350 [Miralax] 17 gm PO HS #30 pk 04/22/17 Rx Thiamine 100 mg PO DAILY #30 tab 04/22/17 Rx Vancomycin 1 gm IVPB 0200,1000,1800 31 Days 04/22/17 Rx bag Furosemide [Lasix] 40 mg PO DAILY-AC #30 tab 06/27/20 Rx Gabapentin 100 mg PO TID #90 capsule 06/27/20 Rx Nadolol 20 mg PO DAILY #30 tablet 06/27/20 Rx Spironolactone 50 mg PO DAILY #30 tablet 06/27/20 Rx Allergies: No Known Allergies Allergy (Verified 07/07/16 15:25) - Discharge Instructions Activity:: Activity as Tolerated Nourishment:: Fluid Restriction Diet (2L fluid restriction), Heart Healthy Diet Therapies:: Occupational Therapy, Physical Therapy Equipment/Supplies:: [facility] - Follow up Plan Referrals: Jamie Bob MD [Active] - ( DIRECTED ) Miguel Angel Swan MD [Active] - ( DIRECTED ) Lainey Donnelly PA-C [Primary Care Provider] - (AFTER DISCHARGE FROM REHAB) Disposition: REHABILITATION INPATIENT Quality - Care Measures CORE MEASURES:: N/A - Stroke/TIA Did you prescribe antithrombotic therapy?: No Specify reason for no DC antithrombotic therapy: Treatment not indicated Did you prescribe anticoagulant for A Fib/Flutter?: No Specify reason for no DC anticoagulant: Treatment not indicated Did you prescribe a statin medication?: No Specify reason for no DC statin medication: Treatment not indicated
[2020-06-27] MEDS ORDERED: Vancomycin HCl 750 MG in Sodium Chloride 0.9% 250 ML 250 ML IVPB SCH (23:59)
== END 2020-06-27 15:32 | DRG 853 ==
LOC: ERS 14:48 → IMCU/EMU 20:56 → ERHOLD 20:56 → IMCU/EMU 06-19 15:42 → T4-B 06-26 12:48
PROVIDERS: ADMIT Internal Medicine; ATTEND Internal Medicine
PROC: 3E033XZ Introduction of Vasopressor into Peripheral Vein, Percutaneous Approach (ICD-10-PCS; 2020-06-18)
PROC: 0QB60ZZ Excision of Right Upper Femur, Open Approach (ICD-10-PCS; principal; 2020-06-20)
PROC: 30233L1 Transfusion of Nonautologous Fresh Plasma into Peripheral Vein, Percutaneous Approach (ICD-10-PCS; 2020-06-20)
PROC: 30233R1 Transfusion of Nonautologous Platelets into Peripheral Vein, Percutaneous Approach (ICD-10-PCS; 2020-06-20)
PROC: 30233K1 Transfusion of Nonautologous Frozen Plasma into Peripheral Vein, Percutaneous Approach (ICD-10-PCS; 2020-06-20)
PROC: 30233N1 Transfusion of Nonautologous Red Blood Cells into Peripheral Vein, Percutaneous Approach (ICD-10-PCS; 2020-06-21)
PROC: 02HV33Z Insertion of Infusion Device into Superior Vena Cava, Percutaneous Approach (ICD-10-PCS; 2020-06-25)
PROC: B548ZZA Ultrasonography of Superior Vena Cava, Guidance (ICD-10-PCS; 2020-06-25)
DX: A41.02 Sepsis due to Methicillin resistant Staphylococcus aureus (principal); R65.21 Severe sepsis with septic shock; K76.6 Portal hypertension; E87.2 Acidosis; M00.051 Staphylococcal arthritis, right hip; D68.9 Coagulation defect, unspecified; E87.1 Hypo-osmolality and hyponatremia; I85.10 Secondary esophageal varices without bleeding; N17.9 Acute kidney failure, unspecified; D62 Acute posthemorrhagic anemia; M96.840 Postprocedural hematoma of a musculoskeletal structure following a musculoskeletal system procedure; M86.8X8 Other osteomyelitis, other site; Z20.828 Contact with and (suspected) exposure to other viral communicable diseases; K21.9 Gastro-esophageal reflux disease without esophagitis; I48.0 Paroxysmal atrial fibrillation; N18.9 Chronic kidney disease, unspecified; Z96.641 Presence of right artificial hip joint; K70.31 Alcoholic cirrhosis of liver with ascites; F31.9 Bipolar disorder, unspecified; R16.1 Splenomegaly, not elsewhere classified; K76.89 Other specified diseases of liver; D69.59 Other secondary thrombocytopenia; F10.20 Alcohol dependence, uncomplicated; D53.9 Nutritional anemia, unspecified; K59.00 Constipation, unspecified; Y83.8 Other surgical procedures as the cause of abnormal reaction of the patient, or of later complication, without mention of misadventure at the time of the procedure; Z90.49 Acquired absence of other specified parts of digestive tract
CPT/HCPCS: 10180; 36415; 36430; 36556; 36569; 71045; 72197; 74176; 80048; 80053; 80202; 81003; 81015; 82140; 82607; 82746; 82805; 83540; 83550; 83605; 83880; 84439; 84443; 85007; 85025; 85027; 85060; 85610; 85730; 86140; 86850; 86900; 86901; 87040; 87070; 87077; 87149; 87186; 87205; 87635; 93005; 93306; 96365; 96367; 96375; A9579; C1751; J1940; J2270; J2370; J2405; J2543; J2704; J3010; J3370; J3490; J7050; J7070; P9016; P9035; P9047; P9059; U0003

== ENCOUNTER 2022-07-08 09:03 | Emergency (ER) | payer OTHER ==
[2022-07-08 10:25] LABS: #Eosinphils 0.2 thou/uL (0.0-0.7); #Monocytes 0.4 thou/uL (0.11-0.59); #Neutrophils 2.8 thou/uL (1.40-6.50); %Eosinophils 4.9 % (0.0-10.0); %Lymphocytes 22.3 % (21.0-51.0); %Monocytes 9.4 % (0.0-10.0); %Neutrophils 62.4 % (42.0-75.0); Hemoglobin 12.6 g/dL (14.0-18.0); Mean Corpuscular HGB CONC 33.6 g/dL (32.0-36.0); Mean Corpuscular Hemoglobin 32.8 pg (27.0-31.0); Mean Corpuscular Volume 97.6 fl (78.0-98.0); Mean Platelet Volume 8.4 fL (7.4-10.4); Platelet Count 104 10x3/uL (130-400); RBC Distribution Width 13.9 % (11.5-14.5); Red Blood Cell (RBC) Count 3.85 mill/uL (4.70-6.10); White Blood Cell (WBC) Count 4.5 10x3/uL (4.8-10.8)
[2022-07-08] MEDS ORDERED: Boostrix 0.5 ML (Tdap) VIAL (>/=7 yrs of age) ONE (10:52)
[2022-07-08 10:54] LABS: Acetaminophen Less than 10.0 mcg/mL (10.0-30.0); Alcohol 406 mg/dL (Less than 10); Salicylate Less than 8.0 mg/dL (15.0-30.0)
[2022-07-08 10:59] LABS: ALT (SGPT) 29 U/L (8-55); AST (SGOT) 64 U/L (5-34); Albumin 3.6 g/dL (3.5-5.0); Alkaline Phosphatase 104 U/L (40-110); Anion Gap 16 mmol/L (10-20); BUN (Urea Nitrogen) 10 mg/dL (8.4-25.7); Bilirubin, Total 1.8 mg/dL (0.2-1.2); CK (CPK) 57 U/L (30-200); Calc. Creatinine Clearance 0 mL/min (70-130); Calcium 10.3 mg/dL (7.8-10.44); Carbon Dioxide 26 mmol/L (22-29); Chloride 108 mmol/L (98-107); Estimated GFR 97; Globulin 2.4 g/dL (2.4-3.5); Glucose 117 mg/dL (70-105); Lipase 113 U/L (8-78); Potassium 3.8 mmol/L (3.5-5.1); Sodium 146 mmol/L (136-145)
[2022-07-08 12:15] LABS: Bacteria/HPF None Seen HPF (None Seen); Bilirubin Negative (Negative); Blood, Urine 1+ (Negative); Clarity Clear (Clear); Glucose, Urine (Dipstick) Normal (Negative); Ketone, Urine Negative (Negative); Leukocyte Negative Leu/uL (Negative); Nitrite Negative (Negative); Protein, Urine (Dipstick) 50 mg/dL (Neg-Trace); Specific Gravity, Urine 1.012 (1.002-1.036); Squamous Epithelial None Seen HPF (0-3); Urobilinogen Normal mg/dL (Less than 2); WBC/HPF 0-3 HPF (0-3); pH, Urine 6.5 (5.0-9.0)
[2022-07-08 12:22] LABS: Amphetamine Not Detected (NotDetected); Barbiturates Screen Not Detected (NotDetected); Benzodiazepine Screen Not Detected (NotDetected); Cocaine Metabolite Screen Not Detected (NotDetected); Methadone Not Detected (NotDetected); Methamphetamine Not Detected (NotDetected); Opiate Screen Not Detected (NotDetected); Oxycodone Screen Not Detected (NotDetected); Phencyclidine (PCP) Not Detected (NotDetected); THC/Cannabinoid Screen Not Detected (NotDetected); Tricyclic Screen Not Detected (NotDetected)
[2022-07-08 13:10] LABS: Lactic Acid 2.6 mmol/L (0.5-2.2)
== END 2022-07-08 15:15 | disposition home or self-care (01) ==
LOC: ERS 09:03
DX: S00.81XA Abrasion of other part of head, initial encounter (principal); S80.212A Abrasion, left knee, initial encounter; S80.211A Abrasion, right knee, initial encounter; F10.129 Alcohol abuse with intoxication, unspecified; Y90.8 Blood alcohol level of 240 mg/100 ml or more; W18.30XA Fall on same level, unspecified, initial encounter
CPT/HCPCS: 36415; 70450; 71045; 72125; 80053; 80306; 80307; 81003; 81015; 82550; 83605; 83690; 85025; 90471; 90715; 93005; 96360

== ENCOUNTER 2023-01-01 14:22 | Inpatient (IN) | payer MEDICARE, OTHER, SELFPAY ==
[2023-01-01 16:10] LABS: Anion Gap 13 mmol/L (10-20); BUN (Urea Nitrogen) 5 mg/dL (8.4-25.7); Calc. Creatinine Clearance 0 mL/min (70-130); Carbon Dioxide 25 mmol/L (22-29); Chloride 110 mmol/L (98-107); Potassium 3.2 mmol/L (3.5-5.1); Sodium 145 mmol/L (136-145)
[2023-01-01 16:11] LABS: ALT (SGPT) 57 U/L (8-55); AST (SGOT) 114 U/L (5-34); Albumin 3.1 g/dL (3.5-5.0); Alkaline Phosphatase 94 U/L (40-110); Calcium 8.3 mg/dL (7.8-10.44); Estimated GFR 105; Globulin 2.1 g/dL (2.4-3.5); Glucose 97 mg/dL (70-105); Protein, Total 5.2 g/dL (6.0-8.3)
[2023-01-01 16:29] LABS: #Eosinphils 0.1 thou/uL (0.0-0.7); #Lymphocytes 0.6 thou/uL (1.20-3.40); #Monocytes 0.5 thou/uL (0.11-0.59); #Neutrophils 2.4 thou/uL (1.40-6.50); %Basophils 1.3 % (0.0-1.0); %Eosinophils 2.6 % (0.0-10.0); %Lymphocytes 16.7 % (21.0-51.0); %Monocytes 13.3 % (0.0-10.0); %Neutrophils 66.1 % (42.0-75.0); Hemoglobin 12.2 g/dL (14.0-18.0); Mean Corpuscular Hemoglobin 34.3 pg (27.0-31.0); Mean Platelet Volume 8.8 fL (7.4-10.4); Platelet Count 94 10x3/uL (130-400); RBC Distribution Width 15.9 % (11.5-14.5); Red Blood Cell (RBC) Count 3.57 mill/uL (4.70-6.10); White Blood Cell (WBC) Count 3.7 10x3/uL (4.8-10.8)
[2023-01-01 16:37] LABS: CKMB 2.1 ng/mL (0-6.6)
[2023-01-01] MEDS ORDERED: Aspirin Chewable 81 MG TAB ONE (17:05)
[2023-01-01] MEDS ORDERED: Ondansetron ODT 4 MG TAB PO PRN (17:13)
[2023-01-01] MEDS ORDERED: Potassium Chloride 20 MEQ TAB PO SCH (17:30)
[2023-01-01 18:27] LABS: Hemoglobin A1c 4.2 % (4.0-6.0)
[2023-01-01 18:31] LABS: INR-International Normal Ratio 1.6; Prothrombin Time 19.3 sec (12.0-14.7)
[2023-01-01 18:32] LABS: PTT 37.7 sec (22.9-36.1)
[2023-01-01 18:41] LABS: Troponin I 0.021 ng/mL (< 0.028)
[2023-01-01 18:41] LABS: Cardiac Risk 2.9 (Less than 4.5)
[2023-01-01 19:01] LABS: HBCM Index 0.08 S/CO (0-0.79); HBSAg Index 0.23 S/CO (0-0.99); HIV (1/2) Antibody/Antigen Non-Reactive (NonReactive); HIV 1/2 INDEX 0.17 S/CO (<1.00); Hep A IgM AB Non-Reactive S/CO (NonReactive); Hep A IgM S/CO 0.15 S/CO (0-0.79); Hep B Surf Ag Non-Reactive S/CO (NonReactive); Hep C IgG Ab Non-Reactive S/CO (NonReactive); Hep C Index 0.11 S/CO (0-0.79); Hepatitis B Core IgM Abs Non-Reactive S/CO (NonReactive); Thyroid Stimulating Hormone 1.2383 uIU/mL (0.35-4.94)
[2023-01-01 19:30] VITALS: BMI 28.5
[2023-01-01] MEDS: Acetaminophen 325 MG TAB PO PRN (21:14)
[2023-01-01 23:11] LABS: Troponin I 0.015 ng/mL (< 0.028)
[2023-01-01] MEDS ORDERED: Lactated Ringer's 1,000 ML IV SCH ×2 (23:45)
[2023-01-02 08:37] LABS: #Eosinphils 0.1 thou/uL (0.0-0.7); #Lymphocytes 0.4 thou/uL (1.20-3.40); #Monocytes 0.2 thou/uL (0.11-0.59); %Eosinophils 3.8 % (0.0-10.0); %Lymphocytes 23.6 % (21.0-51.0); %Monocytes 9.6 % (0.0-10.0); Hemoglobin 10.8 g/dL (14.0-18.0); Mean Corpuscular HGB CONC 33.9 g/dL (32.0-36.0); Mean Corpuscular Hemoglobin 34.4 pg (27.0-31.0); Mean Platelet Volume 8.9 fL (7.4-10.4); Platelet Count 55 10x3/uL (130-400); RBC Distribution Width 15.6 % (11.5-14.5); Red Blood Cell (RBC) Count 3.15 mill/uL (4.70-6.10); White Blood Cell (WBC) Count 1.6 10x3/uL (4.8-10.8)
[2023-01-02 09:27] LABS: Anion Gap 10 mmol/L (10-20); BUN (Urea Nitrogen) 8 mg/dL (8.4-25.7); Calc. Creatinine Clearance 146 mL/min (70-130); Calcium 7.8 mg/dL (7.8-10.44); Carbon Dioxide 25 mmol/L (22-29); Chloride 107 mmol/L (98-107); Estimated GFR 109; Glucose 96 mg/dL (70-105); Potassium 3.2 mmol/L (3.5-5.1); Sodium 139 mmol/L (136-145)
[2023-01-02] MEDS ORDERED: Potassium Chloride 20 MEQ TAB PO SCH (10:30)
[2023-01-02 10:54] LABS: Magnesium 1.5 mg/dL (1.6-2.6)
[2023-01-02] MEDS ORDERED: Ibuprofen 600 MG TAB PO PRN (10:55)
[2023-01-02] MEDS ORDERED: Magnesium 2 GM/50 ML(in water) 2 GM in Premix Bag 1 BAG IVPB SCH (11:30)
[2023-01-02] MEDS: Acetaminophen 325 MG TAB PO PRN ×2 (11:37→20:38)
[2023-01-02] MEDS: Ibuprofen 200 MG TAB PO PRN (18:36)
[2023-01-03] MEDS: Ibuprofen 200 MG TAB PO PRN (05:20)
[2023-01-03 07:57] LABS: #Eosinphils 0.1 thou/uL (0.0-0.7); #Lymphocytes 0.3 thou/uL (1.20-3.40); #Monocytes 0.2 thou/uL (0.11-0.59); #Neutrophils 1.3 thou/uL (1.40-6.50); %Basophils 0.6 % (0.0-1.0); %Eosinophils 6.2 % (0.0-10.0); %Lymphocytes 17.3 % (21.0-51.0); %Monocytes 9.2 % (0.0-10.0); %Neutrophils 66.7 % (42.0-75.0); Hemoglobin 10.8 g/dL (14.0-18.0); Mean Corpuscular Hemoglobin 34.5 pg (27.0-31.0); Mean Platelet Volume 9.5 fL (7.4-10.4); Platelet Count 47 10x3/uL (130-400); RBC Distribution Width 15.5 % (11.5-14.5); Red Blood Cell (RBC) Count 3.13 mill/uL (4.70-6.10)
[2023-01-03] MEDS: Acetaminophen 325 MG TAB PO PRN (08:07)
[2023-01-03 08:16] LABS: Magnesium 1.8 mg/dL (1.6-2.6)
[2023-01-03 09:30] LABS: Anion Gap 10 mmol/L (10-20); BUN (Urea Nitrogen) 8 mg/dL (8.4-25.7); Calc. Creatinine Clearance 142 mL/min (70-130); Calcium 8.1 mg/dL (7.8-10.44); Carbon Dioxide 24 mmol/L (22-29); Chloride 107 mmol/L (98-107); Estimated GFR 108; Glucose 97 mg/dL (70-105); Sodium 137 mmol/L (136-145)
[2023-01-03] MEDS ORDERED: Gabapentin 100 MG CAP PO SCH (10:45)
[2023-01-03] MEDS ORDERED: Acetaminophen 325 MG TAB PO SCH (12:00)
[2023-01-03 16:49] VITALS: BP 125/58; TEMP 98.6
== END 2023-01-03 17:50 | disposition home or self-care (01) | DRG 312 ==
LOC: ERS 14:22 → 2SW 16:48 → OBSVTOIN 01-03 09:25
PROVIDERS: ADMIT Emergency Medicine; ATTEND Emergency Medicine
DX: R55 Syncope and collapse (principal); D61.818 Other pancytopenia; S22.31XA Fracture of one rib, right side, initial encounter for closed fracture; K70.30 Alcoholic cirrhosis of liver without ascites; E87.6 Hypokalemia; I48.0 Paroxysmal atrial fibrillation; W17.89XA Other fall from one level to another, initial encounter; Z90.49 Acquired absence of other specified parts of digestive tract
CPT/HCPCS: 36415; 71045; 80048; 80053; 80061; 80074; 82553; 83036; 83735; 84443; 84484; 85025; 85610; 85730; 87389; 93005; 93306; 96374; G0378; J3475; J7120

== ENCOUNTER 2023-01-04 08:54 | Inpatient (IN) | payer OTHER, MEDICARE ==
[2023-01-04 09:54] LABS: #Eosinphils 0.1 thou/uL (0.0-0.7); #Monocytes 0.2 thou/uL (0.11-0.59); #Neutrophils 1.9 thou/uL (1.40-6.50); %Basophils 0.8 % (0.0-1.0); %Eosinophils 5.3 % (0.0-10.0); %Lymphocytes 14.1 % (21.0-51.0); %Monocytes 7.6 % (0.0-10.0); %Neutrophils 71.8 % (42.0-75.0); Mean Corpuscular HGB CONC 33.5 g/dL (32.0-36.0); Mean Corpuscular Hemoglobin 32.8 pg (27.0-31.0); Mean Corpuscular Volume 97.9 fl (78.0-98.0); RBC Distribution Width 17.1 % (11.5-14.5); Red Blood Cell (RBC) Count 3.35 mill/uL (4.70-6.10); White Blood Cell (WBC) Count 2.6 10x3/uL (4.8-10.8)
[2023-01-04 10:17] LABS: ALT (SGPT) 38 U/L (8-55); AST (SGOT) 67 U/L (5-34); Alkaline Phosphatase 98 U/L (40-110); Anion Gap 9 mmol/L (10-20); BUN (Urea Nitrogen) 8 mg/dL (8.4-25.7); Bilirubin, Total 3.5 mg/dL (0.2-1.2); Calc. Creatinine Clearance 0 mL/min (70-130); Calcium 8.6 mg/dL (7.8-10.44); Carbon Dioxide 22 mmol/L (22-29); Chloride 109 mmol/L (98-107); Estimated GFR 107; Globulin 2.1 g/dL (2.4-3.5); Glucose 99 mg/dL (70-105); Potassium 4.1 mmol/L (3.5-5.1); Protein, Total 5.1 g/dL (6.0-8.3); Sodium 136 mmol/L (136-145)
[2023-01-04 10:31] LABS: Platelet Count 61 10x3/uL (130-400)
[2023-01-04] MEDS ORDERED: Morphine 4 MG/ML VIAL ONE (10:51)
[2023-01-04 11:03] LABS: Bacteria/HPF None Seen HPF (None Seen); Bilirubin Negative (Negative); Blood, Urine 3+ (Negative); Clarity Clear (Clear); Glucose, Urine (Dipstick) Normal (Negative); Ketone, Urine Negative (Negative); Leukocyte Negative Leu/uL (Negative); Nitrite Negative (Negative); Protein, Urine (Dipstick) Negative (Neg-Trace); Specific Gravity, Urine 1.008 (1.002-1.036); Squamous Epithelial None Seen HPF (0-3); Urobilinogen Normal mg/dL (Less than 2); WBC/HPF 0-3 HPF (0-3); pH, Urine 7.5 (5.0-9.0)
[2023-01-04] MEDS ORDERED: Acetaminophen 325 MG TAB PO PRN (13:06)
[2023-01-04 14:19] VITALS: BMI 28.3
[2023-01-04] MEDS: HYDROcodone/Acetaminophen 5/325 mg Tablet PO PRN ×2 (15:11→20:13)
[2023-01-04] MEDS ORDERED: Gabapentin 100 MG CAP PO PRN (21:00)
[2023-01-05] MEDS: HYDROcodone/Acetaminophen 5/325 mg Tablet PO PRN ×3 (01:57→20:30)
[2023-01-05 06:20] LABS: #Eosinphils 0.2 thou/uL (0.0-0.7); #Monocytes 0.3 thou/uL (0.11-0.59); #Neutrophils 1.9 thou/uL (1.40-6.50); %Basophils 1.1 % (0.0-1.0); %Eosinophils 5.8 % (0.0-10.0); %Lymphocytes 16.9 % (21.0-51.0); %Monocytes 9.4 % (0.0-10.0); %Neutrophils 66.4 % (42.0-75.0); Mean Corpuscular HGB CONC 33.1 g/dL (32.0-36.0); Mean Corpuscular Hemoglobin 33.2 pg (27.0-31.0); Mean Corpuscular Volume 100.3 fl (78.0-98.0); Mean Platelet Volume 11.5 fL (7.4-10.4); RBC Distribution Width 17.1 % (11.5-14.5); Red Blood Cell (RBC) Count 3.01 mill/uL (4.70-6.10); White Blood Cell (WBC) Count 2.8 10x3/uL (4.8-10.8)
[2023-01-05 06:57] LABS: Platelet Count 59 10x3/uL (130-400)
[2023-01-05] MEDS: Polyethylene Glycol 3350 17 GM Packet PO SCH (08:10)
[2023-01-05] MEDS ORDERED: Ibuprofen 200 MG TAB PO PRN (12:00)
[2023-01-05] MEDS: Gabapentin 300 MG CAP PO SCH ×2 (15:37→20:31)
[2023-01-06] MEDS: HYDROcodone/Acetaminophen 5/325 mg Tablet PO PRN ×4 (01:14→18:23)
[2023-01-06] MEDS ORDERED: Ibuprofen 200 MG TAB PO PRN (08:40)
[2023-01-06] MEDS: Gabapentin 300 MG CAP PO SCH ×2 (08:45→15:14)
[2023-01-06] MEDS: Polyethylene Glycol 3350 17 GM Packet PO SCH (08:46)
[2023-01-06 15:39] VITALS: BP 105/66; TEMP 98
== END 2023-01-06 19:15 | DRG 200 ==
LOC: ERS 08:54 → SURG B 13:55 → OBSVTOIN 01-05 16:37
PROVIDERS: ADMIT Emergency Medicine; ATTEND Emergency Medicine
DX: S27.0XXA Traumatic pneumothorax, initial encounter (principal); J90 Pleural effusion, not elsewhere classified; S22.41XA Multiple fractures of ribs, right side, initial encounter for closed fracture; R29.6 Repeated falls; I35.0 Nonrheumatic aortic (valve) stenosis; S20.211A Contusion of right front wall of thorax, initial encounter; W01.0XXA Fall on same level from slipping, tripping and stumbling without subsequent striking against object, initial encounter; D69.6 Thrombocytopenia, unspecified; K70.30 Alcoholic cirrhosis of liver without ascites; F10.10 Alcohol abuse, uncomplicated
CPT/HCPCS: 36415; 36416; 71045; 71250; 80053; 81003; 81015; 84484; 85025; 93005; 96374; G0378; J2270